=== PATIENT | female | born 1955 | race Caucasian/White ===

== ENCOUNTER 2018-11-06 15:51 | Emergency (ER) | payer OTHER ==
[~2018-11-06] VITALS: Ht 160 cm; Wt 87.7 kg
[2018-11-06] MEDS ORDERED: normal saline 1000ml 1,000 ML IV ONE (16:35)
[2018-11-06] MEDS ORDERED: insulin regular, human 10 units/0.1 ml syringe SQ ONE (16:35)
[2018-11-06 16:50] LABS: CLARITY,URINE CLEAR (Clear); COLOR,URINE STRAW (Yellow); GLUCOSE, URINE >=1000 mg/dl (Neg); KETONES,URINE NEGATIVE (Neg); LEUKOCYTE ESTERASE ,URINE NEGATIVE (Neg); NITRITES, URINE NEGATIVE (Neg); OCCULT BLOOD,URINE NEGATIVE (Neg); PROTEIN,URINE NEGATIVE (Neg); UROBILINOGEN,URINE 0.2 E.U/dL (0.2-1.0)
[2018-11-06 17:01] LABS: UA COLLECTION TYPE NON-SPECIFIED
[2018-11-06 17:07] LABS: SQUAMOUS EPITHELIAL CELL,UR FEW /LPF (FEW)
[2018-11-06 17:08] LABS: MUCUS STRANDS FEW /LPF (Neg); WBC,URINE 0-4 /HPF (0-4)
[2018-11-06 17:11] LABS: YEAST FEW /HPF (NEGATIVE)
[2018-11-06 17:12] LABS: BACTERIA,URINE NONE SEEN /HPF (Neg); RBC,URINE NONE SEEN /HPF (0-2)
--- NOTE | 2018-11-06 17:14 | NUR ---
ROSE PA NOTIFIED PT BG 380, WILL ADMIN NS IV BOLUS AND RECHECK BG TO DETERMINE NEED FOR INSULIN
[2018-11-06 17:39] LABS: ALANINE AMINOTRANSFERASE 33 U/L (12-78); ALBUMIN 3.4 G/DL (3.4-5.0); ALBUMIN/GLOBULIN RATIO 1.2 (1.1-1.5); ALKALINE PHOSPHATASE 139 IU/L (46-116); ANION GAP 10 (8-16); ASPARTATE AMINO TRANSFERASE 15 U/L (10-37); BILIRUBIN,TOTAL 0.2 MG/DL (0.1-1.0); BLOOD UREA NITROGEN 21 MG/DL (7-18); BUN/CREATININE RATIO 19.1 (6.6-38.0); CALCIUM 9.5 MG/DL (8.5-10.1); CHLORIDE 102 MMOL/L (99-107); GLUCOSE 381 MG/DL (70-104); POTASSIUM 3.7 MMOL/L (3.5-5.1); SODIUM 135 MMOL/L (135-145); TOTAL CARBON DIOXIDE 23.1 MMOL/L (24-32); TOTAL PROTEIN 6.2 G/DL (6.4-8.2); eGFR 50 ML/MIN
--- NOTE | 2018-11-06 17:46 | NUR ---
ROSE PA AT BEDSIDE FOR EVALAUTION, PT BG 340, DO NOT GIVE INSULIN
--- NOTE | 2018-11-06 18:06 | NUR ---
GAVE PT PHONE NUMBER FOR DIABETIC EDUCATION AT [facility]
[2018-11-06 18:12] LABS: BASOPHILS # (AUTO) 0.1 X10'3 (0-0.2); BASOPHILS % (AUTO) 0.7 % (0-1); EOSINOPHILS # (AUTO) 0.2 X10'3 (0-0.9); EOSINOPHILS % (AUTO) 2.8 % (0-6); HEMATOCRIT 35.2 % (35.0-45.0); HEMOGLOBIN 12.1 g/dl (12.0-16.0); LYMPHOCYTES # (AUTO) 2.5 X10'3 (1.1-4.8); LYMPHOCYTES % (AUTO) 33.9 % (21-51); MEAN CORPUSCULAR HEMOGLOBIN 30.8 PG (27.0-31.0); MEAN CORPUSCULAR HGB CONC 34.5 g/dL (33.0-36.5); MEAN CORPUSCULAR VOLUME 89.4 FL (78-98); MEAN PLATELET VOLUME 9.1 FL (7.4-10.4); MONOCYTES # (AUTO) 0.5 X10'3 (0-0.9); MONOCYTES % (AUTO) 7.1 % (2-12); NEUTROPHILS # (AUTO) 4.2 X10'3 (1.8-7.7); NEUTROPHILS % (AUTO) 55.5 % (42-75); PLATELET COUNT 251 X10'3 (140-440); RED BLOOD COUNT 3.94 X10'6 (4.20-5.60); RED CELL DISTRIBUTION WIDTH 13.6 % (11.5-14.5); WHITE BLOOD COUNT 7.5 X10'3 (4.5-11.0)
--- NOTE | 2018-11-06 18:48 | NUR ---
accucheck 304, Pt ok to Dc per PA Thornton.
[2018-11-06 18:51] VITALS: BP 125/87
== END 2018-11-06 18:57 | disposition home or self-care (01) ==
LOC: ER 15:52
DX: E11.65 Type 2 diabetes mellitus with hyperglycemia (principal); R19.7 Diarrhea, unspecified; R10.9 Unspecified abdominal pain; R61 Generalized hyperhidrosis; R11.0 Nausea; L60.0 Ingrowing nail; L53.9 Erythematous condition, unspecified; I10 Essential (primary) hypertension; Z88.0 Allergy status to penicillin; Z79.899 Other long term (current) drug therapy
CPT/HCPCS: 36415; 80053; 81001; 82948; 83036; 85025; 96372; 99283; J1815; J7030

== ENCOUNTER → 2020-09-25 | Emergency (ER) | payer MEDICARE, BC ==
[~2020-09-25] VITALS: Ht 160 cm; Wt 84.1 kg
[~2020-09-25] MED LIST: DICY10CA88 PO; LORazepam 2 mg/ml vial IV ONE; ONDA4TAB12 PO; diphenhydrAMINE 50 mg/ml inj IV ONE; glycopyrrolate 0.2mg/ml inj IV ONE; ketorolac trometh. 30mg/ml inj. IV ONE; metoclopramide 5 mg/ml inj IV ONE; morphine 10mg/ml inj. IV ONE; normal saline 1000ml 1,000 ML IV ONE
[2020-09-25 05:48] LABS: CLARITY,URINE CLEAR (Clear); COLOR,URINE YELLOW (Yellow); GLUCOSE, URINE >=1000 mg/dl (Neg); KETONES,URINE 40 mg/dl (Neg); LEUKOCYTE ESTERASE ,URINE NEGATIVE (Neg); NITRITES, URINE NEGATIVE (Neg); OCCULT BLOOD,URINE NEGATIVE (Neg); PROTEIN,URINE NEGATIVE (Neg); UROBILINOGEN,URINE 0.2 E.U/dL (0.2-1.0)
[2020-09-25 05:52] LABS: BASOPHILS # (AUTO) 0.2 X10'3 (0-0.2); BASOPHILS % (AUTO) 1.1 % (0-1); EOSINOPHILS % (AUTO) 0.2 % (0-6); HEMATOCRIT 45.4 % (35.0-45.0); HEMOGLOBIN 15.1 g/dl (12.0-16.0); LYMPHOCYTES # (AUTO) 1.6 X10'3 (1.1-4.8); LYMPHOCYTES % (AUTO) 9.7 % (21-51); MEAN CORPUSCULAR HEMOGLOBIN 30.4 PG (27.0-31.0); MEAN CORPUSCULAR HGB CONC 33.2 g/dL (33.0-36.5); MEAN CORPUSCULAR VOLUME 91.6 FL (78-98); MEAN PLATELET VOLUME 8.8 FL (7.4-10.4); MONOCYTES # (AUTO) 0.8 X10'3 (0-0.9); MONOCYTES % (AUTO) 4.6 % (2-12); NEUTROPHILS # (AUTO) 14.2 X10'3 (1.8-7.7); NEUTROPHILS % (AUTO) 84.4 % (42-75); PLATELET COUNT 258 X10'3 (140-440); RED BLOOD COUNT 4.96 X10'6 (4.20-5.60); RED CELL DISTRIBUTION WIDTH 13.7 % (11.5-14.5); WHITE BLOOD COUNT 16.9 X10'3 (4.5-11.0)
[2020-09-25 05:56] LABS: UA COLLECTION TYPE CLN CATCH MIDSTREAM
[2020-09-25 06:02] LABS: BACTERIA,URINE NONE SEEN /HPF (Neg); RBC,URINE NONE SEEN /HPF (0-2); WBC,URINE NONE SEEN /HPF (0-4)
[2020-09-25 06:03] LABS: SQUAMOUS EPITHELIAL CELL,UR FEW /LPF (FEW)
[2020-09-25 06:05] LABS: YEAST FEW /HPF (NEGATIVE)
[2020-09-25 06:06] LABS: ALANINE AMINOTRANSFERASE 38 U/L (12-78); ALBUMIN 3.8 G/DL (3.4-5.0); ALBUMIN/GLOBULIN RATIO 1.1 (1.1-1.5); ALKALINE PHOSPHATASE 103 IU/L (46-116); ANION GAP 15 (8-16); ASPARTATE AMINO TRANSFERASE 31 U/L (10-37); BILIRUBIN,TOTAL 0.5 MG/DL (0.1-1.0); BLOOD UREA NITROGEN 18 MG/DL (7-18); BUN/CREATININE RATIO 22.2 (6.6-38.0); CALCIUM 9.9 MG/DL (8.5-10.1); CHLORIDE 99 MMOL/L (99-107); CREATININE 0.81 MG/DL (0.40-0.90); GLUCOSE 229 MG/DL (70-104); LIPASE 142 U/L (73-393); POTASSIUM 4.3 MMOL/L (3.5-5.1); SODIUM 134 MMOL/L (135-145); TOTAL CARBON DIOXIDE 19.6 MMOL/L (24-32); TOTAL PROTEIN 7.3 G/DL (6.4-8.2); eGFR 71 ML/MIN
--- NOTE | 2020-09-25 06:36 | NUR ---
Patient recveived on bed,due meds given,call light lawrence barba.
--- NOTE | 2020-09-25 07:18 | NUR ---
patient asleep at this time.We will monitor.
--- NOTE | 2020-09-25 07:59 | NUR ---
stage technician at bedside.
--- NOTE | 2020-09-25 08:45 | NUR ---
patient asleep at this time.We will monitor.
[2020-09-25 09:32] VITALS: BP 135/97
== END | disposition home or self-care (01) ==
LOC: ER 04:47
DX: R10.30 Lower abdominal pain, unspecified (principal); R11.10 Vomiting, unspecified; Z72.0 Tobacco use; D35.02 Benign neoplasm of left adrenal gland; E11.9 Type 2 diabetes mellitus without complications; I10 Essential (primary) hypertension
CPT/HCPCS: 36415; 74176; 76700; 80053; 81001; 83690; 84145; 85025; 96361; 96374; 96375; 99285; J1200; J1885; J2060; J2270; J2765; J7030; J3490

== ENCOUNTER 2021-02-28 16:40 | Emergency (ER) | payer MEDICARE, BC ==
[~2021-02-28] VITALS: Ht 160 cm; Wt 87.4 kg
[~2021-02-28 16:40] MED LIST changes: -DICY10CA88 PO; -LORazepam 2 mg/ml vial IV ONE; -diphenhydrAMINE 50 mg/ml inj IV ONE; -glycopyrrolate 0.2mg/ml inj IV ONE; -ketorolac trometh. 30mg/ml inj. IV ONE; -metoclopramide 5 mg/ml inj IV ONE; -morphine 10mg/ml inj. IV ONE; -normal saline 1000ml 1,000 ML IV ONE
[2021-02-28 17:56] VITALS: BP 161/100
[2021-02-28 18:36] LABS: LYMPHOCYTES # (AUTO) 2.9 X10'3 (1.1-4.8); NEUTROPHILS # (AUTO) 8.8 X10'3 (1.8-7.7); NEUTROPHILS % (AUTO) 67.8 % (42-75)
[2021-02-28 18:38] LABS: BASOPHILS # (AUTO) 0.1 X10'3 (0-0.2); BASOPHILS % (AUTO) 0.6 % (0-1); EOSINOPHILS # (AUTO) 0.4 X10'3 (0-0.9); EOSINOPHILS % (AUTO) 3.1 % (0-6); HEMATOCRIT 45.3 % (35.0-45.0); HEMOGLOBIN 14.9 g/dl (12.0-16.0); MEAN CORPUSCULAR HEMOGLOBIN 29.8 PG (27.0-31.0); MEAN CORPUSCULAR VOLUME 90.2 FL (78-98); MONOCYTES # (AUTO) 0.8 X10'3 (0-0.9); MONOCYTES % (AUTO) 6.5 % (2-12); PLATELET COUNT 253 X10'3 (140-440); RED BLOOD COUNT 5.02 X10'6 (4.20-5.60)
[2021-02-28 18:54] LABS: ALANINE AMINOTRANSFERASE 42 U/L (12-78); ALKALINE PHOSPHATASE 149 IU/L (46-116); ANION GAP 15 (8-16); ASPARTATE AMINO TRANSFERASE 25 U/L (10-37); BILIRUBIN,TOTAL 0.2 MG/DL (0.1-1.0); BLOOD UREA NITROGEN 21 MG/DL (7-18); BUN/CREATININE RATIO 23.1 (6.6-38.0); CALCIUM 10.1 MG/DL (8.5-10.1); CHLORIDE 107 MMOL/L (99-107); CREATININE 0.91 MG/DL (0.40-0.90); GLUCOSE 136 MG/DL (70-104); MAGNESIUM 2.5 MG/DL (1.5-2.4); SODIUM 142 MMOL/L (135-145); TOTAL CARBON DIOXIDE 20.2 MMOL/L (24-32); TOTAL PROTEIN 7.9 G/DL (6.4-8.2); eGFR 62 ML/MIN
[2021-02-28 19:02] LABS: POTASSIUM 4.5 MMOL/L (3.5-5.1)
[2021-02-28] MEDS ORDERED: DOXYCYCLINE 100MG CAPSULE PO STA (21:13)
[2021-02-28] MEDS ORDERED: HYDROcodone/acetaminophen 5mg/325mg tablet PO ONE (21:15)
[2021-02-28] MEDS ORDERED: DOXY100C76 PO (21:54)
== END 2021-02-28 22:25 | disposition home or self-care (01) ==
LOC: ER 16:40
DX: S91.301A Unspecified open wound, right foot, initial encounter (principal); I10 Essential (primary) hypertension; E11.9 Type 2 diabetes mellitus without complications; Z88.0 Allergy status to penicillin; Z88.2 Allergy status to sulfonamides; Z79.1 Long term (current) use of non-steroidal anti-inflammatories (NSAID); Z90.710 Acquired absence of both cervix and uterus; Z79.899 Other long term (current) drug therapy; X58.XXXA Exposure to other specified factors, initial encounter; Y93.89 Activity, other specified; Y92.89 Other specified places as the place of occurrence of the external cause; Y99.8 Other external cause status
CPT/HCPCS: 36415; 73630; 80053; 82948; 83735; 84145; 85025; 85651; 99284

== ENCOUNTER 2023-05-13 11:24 | Emergency (ER) | payer MEDICARE, BC ==
[~2023-05-13] VITALS: Ht 160 cm; Wt 78.4 kg
[~2023-05-13 11:24] MED LIST changes: +ASPI-1071 PO; +ATOR20TA66 PO; +CLOP75TA34 PO; +DULO60CA65 PO; +GABA300C PO; +LOP25T PO; +METF-900 PO; +NICO-631 TD; +OLME40TA18 PO; -ONDA4TAB12 PO
[2023-05-13 11:56] LABS: BASOPHILS # (AUTO) 0.1 X10'3 (0-0.2); BASOPHILS % (AUTO) 1.4 % (0-1); EOSINOPHILS # (AUTO) 0.2 X10'3 (0-0.9); EOSINOPHILS % (AUTO) 2.1 % (0-6); LYMPHOCYTES % (AUTO) 20.8 % (21-51); MEAN CORPUSCULAR HEMOGLOBIN 29.5 PG (27.0-31.0); MEAN CORPUSCULAR HGB CONC 32.6 g/dL (33.0-36.5); MEAN CORPUSCULAR VOLUME 90.3 FL (78-98); MEAN PLATELET VOLUME 8.2 FL (7.4-10.4); MONOCYTES # (AUTO) 0.5 X10'3 (0-0.9); MONOCYTES % (AUTO) 5.7 % (2-12); NEUTROPHILS # (AUTO) 6.7 X10'3 (1.8-7.7); PLATELET COUNT 298 X10'3 (140-440); RED BLOOD COUNT 4.75 X10'6 (4.20-5.60); RED CELL DISTRIBUTION WIDTH 13.9 % (11.5-14.5); WHITE BLOOD COUNT 9.6 X10'3 (4.5-11.0)
[2023-05-13 12:14] LABS: ALANINE AMINOTRANSFERASE 34 U/L (12-78); ALBUMIN 3.3 G/DL (3.4-5.0); ALKALINE PHOSPHATASE 139 IU/L (46-116); ANION GAP 14 (8-16); ASPARTATE AMINO TRANSFERASE 15 U/L (10-37); BILIRUBIN,TOTAL 0.2 MG/DL (0.1-1.0); BLOOD UREA NITROGEN 21 MG/DL (7-18); BUN/CREATININE RATIO 21.4 (10.0-20.0); CALCIUM 9.7 MG/DL (8.5-10.1); CHLORIDE 98 MMOL/L (99-107); CREATININE 0.98 MG/DL (0.40-0.90); PRO BRAIN NATRIURETIC PEPTIDE 269 PG/ML (0-125); SODIUM 133 MMOL/L (135-145); TOTAL CARBON DIOXIDE 20.7 MMOL/L (24-32); TOTAL PROTEIN 6.5 G/DL (6.4-8.2); eCRCL 45 ML/MIN; eGFR 56 ML/MIN
[2023-05-13 12:18] LABS: GLUCOSE 460 MG/DL (70-104)
[2023-05-13 12:39] VITALS: TEMP 98.7
--- NOTE | 2023-05-13 15:07 | NUR ---
pt is 68 yo female c/o dyspnea x1 day, no coughx 2days, no fever/chills. Smokes 5 cigarettes a day. h/o recent NH, no chest pain/discomfort, pt is talking full sentences, no resp distress. Waiting for provider. Pt also c/o "bump" on left axillary x1 week, +swelling, +redness, was draining per pt, "and I get these all the time", pt was also prescribed another DM med but cannot afford medication. Educated pt on diabetic diet and exercise to control sugars. Pt has been following up with PMD
[2023-05-13] MEDS ORDERED: CEPH-585 PO (15:35)
[2023-05-13] MEDS ORDERED: CLIN300C71 PO (15:35)
[2023-05-13 15:46] VITALS: BP 150/98; PULSE 70; RESP 18; O2SAT 97
[2023-05-13] MEDS ORDERED: ALBU18HF2 INH (16:17)
[2023-05-17] MEDS ORDERED: ALBU6.7H14 INH (12:38)
[2023-05-17] MEDS ORDERED: OXYC1TAB17 PO (12:38)
[2023-05-17] MEDS ORDERED: ALPR0.252 PO (12:52)
[2023-05-17] MEDS ORDERED: NITR0.4T51 SL (13:01)
[2023-05-17] MEDS ORDERED: HYDR-3973 PO (13:05)
[2023-05-17] MEDS ORDERED: METO25TA6 PO (13:05)
[2023-05-18] MEDS ORDERED: ATOR-2 PO (11:11)
[2023-05-18] MEDS ORDERED: NEED-136 SUBCUT (11:11)
[2023-05-18] MEDS ORDERED: INSU300I3 SQ (11:11)
[2023-05-18] MEDS ORDERED: TICA90TA PO (11:11)
== END 2023-05-13 15:49 | disposition home or self-care (01) ==
LOC: ER 11:25
DX: Z88.0 Allergy status to penicillin (principal); Z88.2 Allergy status to sulfonamides; Z79.82 Long term (current) use of aspirin; Z79.899 Other long term (current) drug therapy
CPT/HCPCS: 36415; 71045; 80053; 82948; 83880; 84484; 85025; 93005; 99285

== ENCOUNTER 2023-07-03 11:04 | Emergency (ER) | payer MEDICARE, BC ==
[~2023-07-03] VITALS: Ht 161.3 cm; Wt 74.3 kg
[~2023-07-03 11:04] MED LIST changes: +ALBU18HF2 INH; +ALBU6.7H14 INH; +ALPR0.252 PO; +ATOR-2 PO; -ATOR20TA66 PO; -CLOP75TA34 PO; +HYDR-3973 PO; +INSU300I3 SQ; -LOP25T PO; +METO25TA6 PO; +NEED-136 SUBCUT; +NITR0.4T51 SL; +TICA90TA PO
[2023-07-03 11:43] LABS: BASOPHILS # (AUTO) 0.1 X10'3 (0-0.2); BASOPHILS % (AUTO) 1.2 % (0-1); EOSINOPHILS # (AUTO) 0.2 X10'3 (0-0.9); EOSINOPHILS % (AUTO) 1.6 % (0-6); HEMATOCRIT 43.9 % (35.0-45.0); HEMOGLOBIN 14.2 g/dl (12.0-16.0); LYMPHOCYTES # (AUTO) 2.6 X10'3 (1.1-4.8); LYMPHOCYTES % (AUTO) 22.9 % (21-51); MEAN CORPUSCULAR HEMOGLOBIN 29.2 PG (27.0-31.0); MEAN CORPUSCULAR HGB CONC 32.3 g/dL (33.0-36.5); MEAN CORPUSCULAR VOLUME 90.5 FL (78-98); MEAN PLATELET VOLUME 8.8 FL (7.4-10.4); MONOCYTES # (AUTO) 0.8 X10'3 (0-0.9); MONOCYTES % (AUTO) 6.6 % (2-12); NEUTROPHILS # (AUTO) 7.7 X10'3 (1.8-7.7); NEUTROPHILS % (AUTO) 67.7 % (42-75); PLATELET COUNT 374 X10'3 (140-440); RED BLOOD COUNT 4.85 X10'6 (4.20-5.60); RED CELL DISTRIBUTION WIDTH 14.3 % (11.5-14.5); WHITE BLOOD COUNT 11.4 X10'3 (4.5-11.0)
[2023-07-03 12:44] LABS: ALANINE AMINOTRANSFERASE 29 U/L (12-78); ALBUMIN 3.5 G/DL (3.4-5.0); ALBUMIN/GLOBULIN RATIO 0.9 (1.1-1.5); ALKALINE PHOSPHATASE 127 IU/L (46-116); ANION GAP 14 (8-16); ASPARTATE AMINO TRANSFERASE 16 U/L (10-37); BILIRUBIN,TOTAL 0.4 MG/DL (0.1-1.0); BLOOD UREA NITROGEN 18 MG/DL (7-18); BUN/CREATININE RATIO 20.2 (10.0-20.0); CALCIUM 10.4 MG/DL (8.5-10.1); CHLORIDE 103 MMOL/L (99-107); CREATININE 0.89 MG/DL (0.40-0.90); GLUCOSE 353 MG/DL (70-104); POTASSIUM 4.2 MMOL/L (3.5-5.1); SODIUM 136 MMOL/L (135-145); TOTAL CARBON DIOXIDE 19.1 MMOL/L (24-32); TOTAL PROTEIN 7.2 G/DL (6.4-8.2); eCRCL 51 ML/MIN; eGFR 63 ML/MIN
[2023-07-03 12:51] LABS: PRO BRAIN NATRIURETIC PEPTIDE 148 PG/ML (0-125)
[2023-07-03] MEDS ORDERED: normal saline 1000ML IV soln IVB ONE (19:30)
[2023-07-03] MEDS ORDERED: albuterol 2.5 MG/3 ML nebule NEB ONE (19:30)
[2023-07-03] MEDS ORDERED: pantoprazole 40mg IV 80 MG in normal saline 100ml IV soln 100 ML IV ONE (19:30)
[2023-07-03] MEDS ORDERED: pantoprazole 40 MG vial IV ONE (19:45)
[2023-07-03 19:50] VITALS: PULSE 84; RESP 12; O2SAT 99
[2023-07-03 19:57] VITALS: PULSE 88; RESP 16
[2023-07-03] MEDS ORDERED: ondansetron/PF 4mg/2ml inj IV ONE (20:15)
[2023-07-03 20:55] LABS: BILIRUBIN,URINE NEGATIVE (Neg); CLARITY,URINE CLEAR (Clear); COLOR,URINE YELLOW (Yellow); GLUCOSE, URINE >=1000 mg/dl (Neg); KETONES,URINE NEGATIVE (Neg); LEUKOCYTE ESTERASE ,URINE NEGATIVE (Neg); NITRITES, URINE NEGATIVE (Neg); OCCULT BLOOD,URINE NEGATIVE (Neg); PH,URINE 5.5 (4.8-8.0); PROTEIN,URINE NEGATIVE (Neg); UROBILINOGEN,URINE 0.2 E.U/dL (0.2-1.0)
[2023-07-03 20:57] LABS: UA COLLECTION TYPE VOIDED
[2023-07-03 21:00] LABS: URINE AMPHETAMINE SCREEN NEGATIVE (Neg); URINE BARBITUATE SCREEN NEGATIVE (Neg); URINE BENZODIAZEPINES SCREEN NEGATIVE (Neg); URINE CANNABINOID SCREEN NEGATIVE (Neg); URINE COCAINE SCREEN NEGATIVE (Neg); URINE METHADONE SCREEN NEGATIVE (Neg); URINE OPIATE SCREEN POSITIVE (Neg); URINE PHENCYCLIDINE SCREEN NEGATIVE (Neg)
[2023-07-03 21:02] LABS: HYALINE CASTS 0-3 /LPF (NEGATIVE); MUCUS STRANDS FEW /LPF (Neg); SQUAMOUS EPITHELIAL CELL,UR MANY /LPF (FEW)
[2023-07-03 21:04] LABS: BACTERIA,URINE NONE SEEN /HPF (Neg); RBC,URINE 0-2 /HPF (0-2); WBC,URINE 0-4 /HPF (0-4)
[2023-07-03 22:15] VITALS: BP 133/85; PULSE 89; RESP 16; TEMP 98.3; O2SAT 99
== END 2023-07-03 22:29 | disposition home or self-care (01) ==
LOC: ER 11:05
DX: E11.65 Type 2 diabetes mellitus with hyperglycemia (principal); R07.89 Other chest pain; R06.02 Shortness of breath; R10.13 Epigastric pain; I25.10 Atherosclerotic heart disease of native coronary artery without angina pectoris; E78.00 Pure hypercholesterolemia, unspecified; I10 Essential (primary) hypertension; Z90.710 Acquired absence of both cervix and uterus; Z88.0 Allergy status to penicillin; Z88.2 Allergy status to sulfonamides; Z79.82 Long term (current) use of aspirin; Z79.899 Other long term (current) drug therapy; Z95.5 Presence of coronary angioplasty implant and graft
CPT/HCPCS: 36415; 71045; 80053; 80305; 81001; 83880; 84484; 85025; 93005; 94640; 96361; 96374; 96375; 99285; C9113; J2405; J7030; 94760

== ENCOUNTER 2024-02-29 15:08 | Emergency (ER) | payer MEDICARE, BC ==
[~2024-02-29] VITALS: Ht 160 cm; Wt 80.0 kg
[2024-02-29 16:09] LABS: BASOPHILS # (AUTO) 0.1 X10'3 (0-0.2); BASOPHILS % (AUTO) 1.1 % (0-1); EOSINOPHILS # (AUTO) 0.5 X10'3 (0-0.9); EOSINOPHILS % (AUTO) 4.9 % (0-6); HEMOGLOBIN 13.6 g/dl (12.0-16.0); LYMPHOCYTES # (AUTO) 2.5 X10'3 (1.1-4.8); LYMPHOCYTES % (AUTO) 22.9 % (21-51); MEAN CORPUSCULAR HEMOGLOBIN 29.6 PG (27.0-31.0); MEAN CORPUSCULAR HGB CONC 33.1 g/dL (33.0-36.5); MEAN CORPUSCULAR VOLUME 89.3 FL (78-98); MEAN PLATELET VOLUME 7.9 FL (7.4-10.4); MONOCYTES # (AUTO) 0.7 X10'3 (0-0.9); MONOCYTES % (AUTO) 6.1 % (2-12); NEUTROPHILS # (AUTO) 7.2 X10'3 (1.8-7.7); PLATELET COUNT 352 X10'3 (140-440); RED BLOOD COUNT 4.59 X10'6 (4.20-5.60); RED CELL DISTRIBUTION WIDTH 16.2 % (11.5-14.5)
[2024-02-29 16:21] LABS: ALANINE AMINOTRANSFERASE 23 U/L (12-78); ALBUMIN 3.7 G/DL (3.4-5.0); ALBUMIN/GLOBULIN RATIO 0.9 (1.1-1.5); ALKALINE PHOSPHATASE 119 IU/L (46-116); ANION GAP 14 (8-16); ASPARTATE AMINO TRANSFERASE 15 U/L (10-37); BILIRUBIN,TOTAL 0.2 MG/DL (0.1-1.0); BLOOD UREA NITROGEN 27 MG/DL (7-18); BUN/CREATININE RATIO 33.3 (10.0-20.0); CALCIUM 10.3 MG/DL (8.5-10.1); CHLORIDE 108 MMOL/L (99-107); CREATININE 0.81 MG/DL (0.40-0.90); GLUCOSE 185 MG/DL (70-104); SODIUM 142 MMOL/L (135-145); TOTAL CARBON DIOXIDE 19.9 MMOL/L (24-32); TOTAL PROTEIN 7.6 G/DL (6.4-8.2); eCRCL 55 ML/MIN; eGFR 70 ML/MIN
[2024-02-29 16:31] LABS: FREE T4 (FREE THYROXINE) 0.79 NG/DL (0.73-1.40); MAGNESIUM 1.8 MG/DL (1.5-2.4); PRO BRAIN NATRIURETIC PEPTIDE 253 PG/ML (0-125)
[2024-02-29 17:37] LABS: BILIRUBIN,URINE NEGATIVE (Neg); CLARITY,URINE CLEAR (Clear); COLOR,URINE STRAW (Yellow); GLUCOSE, URINE 100 mg/dl (Neg); KETONES,URINE NEGATIVE (Neg); LEUKOCYTE ESTERASE ,URINE NEGATIVE (Neg); NITRITES, URINE NEGATIVE (Neg); OCCULT BLOOD,URINE NEGATIVE (Neg); PROTEIN,URINE NEGATIVE (Neg); UROBILINOGEN,URINE 0.2 E.U/dL (0.2-1.0)
[2024-02-29] MEDS: normal saline 1000ML IV soln IVB ONE (17:41)
[2024-02-29 17:42] LABS: UA COLLECTION TYPE CLN CATCH MIDSTREAM
[2024-02-29 17:47] VITALS: BP 186/79; PULSE 58; RESP 16; O2SAT 100
[2024-02-29] MEDS ORDERED: DOXY100C43 PO (18:16)
[2024-02-29 18:28] VITALS: TEMP 97.1
== END 2024-02-29 18:30 | disposition home or self-care (01) ==
LOC: ER 15:09
DX: R07.89 Other chest pain (principal); J40 Bronchitis, not specified as acute or chronic; E86.0 Dehydration; I25.10 Atherosclerotic heart disease of native coronary artery without angina pectoris; E78.00 Pure hypercholesterolemia, unspecified; I10 Essential (primary) hypertension; I25.2 Old myocardial infarction; E11.9 Type 2 diabetes mellitus without complications; Z88.0 Allergy status to penicillin; Z88.2 Allergy status to sulfonamides; Z79.899 Other long term (current) drug therapy; Z79.4 Long term (current) use of insulin; Z79.82 Long term (current) use of aspirin; Z79.84 Long term (current) use of oral hypoglycemic drugs; Z90.710 Acquired absence of both cervix and uterus; Z98.61 Coronary angioplasty status; Z98.890 Other specified postprocedural states
CPT/HCPCS: 36415; 71045; 80053; 81003; 83605; 83735; 83880; 84439; 84443; 84484; 85025; 93005; 96360; 99285; J7030

== ENCOUNTER 2024-10-06 15:26 | Emergency (ER) | payer MEDICARE, BC ==
[~2024-10-06] VITALS: Ht 167.6 cm; Wt 82.5 kg
[2024-10-06 15:51] LABS: BASOPHILS # (AUTO) 0.1 X10'3 (0-0.2); EOSINOPHILS # (AUTO) 0.3 X10'3 (0-0.9); EOSINOPHILS % (AUTO) 2.1 % (0-6); HEMATOCRIT 39.7 % (35.0-45.0); HEMOGLOBIN 13.1 g/dl (12.0-16.0); LYMPHOCYTES # (AUTO) 2.6 X10'3 (1.1-4.8); LYMPHOCYTES % (AUTO) 21.4 % (21-51); MEAN CORPUSCULAR HEMOGLOBIN 28.8 PG (27.0-31.0); MEAN CORPUSCULAR HGB CONC 32.9 g/dL (33.0-36.5); MEAN CORPUSCULAR VOLUME 87.5 FL (78-98); MEAN PLATELET VOLUME 7.9 FL (7.4-10.4); MONOCYTES # (AUTO) 0.7 X10'3 (0-0.9); NEUTROPHILS # (AUTO) 8.5 X10'3 (1.8-7.7); NEUTROPHILS % (AUTO) 69.5 % (42-75); PLATELET COUNT 322 X10'3 (140-440); RED BLOOD COUNT 4.53 X10'6 (4.20-5.60); RED CELL DISTRIBUTION WIDTH 14.6 % (11.5-14.5); WHITE BLOOD COUNT 12.3 X10'3 (4.5-11.0)
[2024-10-06 16:03] VITALS: TEMP 97.8
[2024-10-06 16:14] LABS: ALANINE AMINOTRANSFERASE 25 U/L (12-78); ALBUMIN 3.4 G/DL (3.4-5.0); ALKALINE PHOSPHATASE 150 IU/L (46-116); ANION GAP 11 (8-16); ASPARTATE AMINO TRANSFERASE 14 U/L (10-37); BILIRUBIN,TOTAL 0.2 MG/DL (0.1-1.0); BLOOD UREA NITROGEN 28 MG/DL (7-18); BUN/CREATININE RATIO 25.2 (10.0-20.0); CALCIUM 9.5 MG/DL (8.5-10.1); CHLORIDE 109 MMOL/L (99-107); CREATININE 1.11 MG/DL (0.40-0.90); GLUCOSE 166 MG/DL (70-104); POTASSIUM 4.3 MMOL/L (3.5-5.1); SODIUM 142 MMOL/L (135-145); TOTAL CARBON DIOXIDE 22.3 MMOL/L (24-32); TOTAL PROTEIN 6.9 G/DL (6.4-8.2); eCRCL 45 ML/MIN; eGFR 49 ML/MIN
[2024-10-06 16:22] LABS: PRO BRAIN NATRIURETIC PEPTIDE 172 PG/ML (0-125)
[2024-10-06] MEDS ORDERED: ALPRAZolam 0.25mg tablet PO ONE (18:20)
[2024-10-06] MEDS: ALPRAZolam 0.5mg tablet PO ONE (18:40)
[2024-10-06 18:42] VITALS: BP 148/72; PULSE 64; RESP 18; O2SAT 98
== END 2024-10-06 18:45 | disposition home or self-care (01) ==
LOC: ER 15:27
DX: R07.9 Chest pain, unspecified (principal); R06.02 Shortness of breath; E11.9 Type 2 diabetes mellitus without complications; E78.00 Pure hypercholesterolemia, unspecified; I11.9 Hypertensive heart disease without heart failure; I25.10 Atherosclerotic heart disease of native coronary artery without angina pectoris; Z95.5 Presence of coronary angioplasty implant and graft; Z88.0 Allergy status to penicillin; Z88.2 Allergy status to sulfonamides; Z90.710 Acquired absence of both cervix and uterus; Z79.82 Long term (current) use of aspirin
CPT/HCPCS: 36415; 71045; 80053; 83880; 84484; 85025; 93005; 99285

== ENCOUNTER 2024-10-13 14:04 | Inpatient (IN) | payer MEDICARE, BC ==
[~2024-10-13] VITALS: Ht 161.3 cm; Wt 82.5 kg
[2024-10-13 14:49] LABS: BASOPHILS # (AUTO) 0.1 X10'3 (0-0.2); EOSINOPHILS # (AUTO) 0.4 X10'3 (0-0.9); EOSINOPHILS % (AUTO) 3.1 % (0-6); HEMATOCRIT 37.9 % (35.0-45.0); HEMOGLOBIN 12.6 g/dl (12.0-16.0); LYMPHOCYTES # (AUTO) 2.2 X10'3 (1.1-4.8); LYMPHOCYTES % (AUTO) 19.2 % (21-51); MEAN CORPUSCULAR HGB CONC 33.2 g/dL (33.0-36.5); MEAN CORPUSCULAR VOLUME 87.4 FL (78-98); MEAN PLATELET VOLUME 7.8 FL (7.4-10.4); MONOCYTES # (AUTO) 0.5 X10'3 (0-0.9); MONOCYTES % (AUTO) 4.6 % (2-12); NEUTROPHILS # (AUTO) 8.2 X10'3 (1.8-7.7); NEUTROPHILS % (AUTO) 72.1 % (42-75); PLATELET COUNT 337 X10'3 (140-440); RED BLOOD COUNT 4.33 X10'6 (4.20-5.60); RED CELL DISTRIBUTION WIDTH 14.3 % (11.5-14.5); WHITE BLOOD COUNT 11.4 X10'3 (4.5-11.0)
[2024-10-13 15:13] LABS: ALANINE AMINOTRANSFERASE 27 U/L (12-78); ALBUMIN 3.4 G/DL (3.4-5.0); ALBUMIN/GLOBULIN RATIO 1.1 (1.1-1.5); ALKALINE PHOSPHATASE 144 IU/L (46-116); ANION GAP 8 (8-16); ASPARTATE AMINO TRANSFERASE 17 U/L (10-37); BILIRUBIN,TOTAL 0.2 MG/DL (0.1-1.0); BLOOD UREA NITROGEN 24 MG/DL (7-18); CALCIUM 9.5 MG/DL (8.5-10.1); CHLORIDE 111 MMOL/L (99-107); GLUCOSE 148 MG/DL (70-104); POTASSIUM 4.4 MMOL/L (3.5-5.1); SODIUM 141 MMOL/L (135-145); TOTAL CARBON DIOXIDE 21.8 MMOL/L (24-32); TOTAL PROTEIN 6.6 G/DL (6.4-8.2); eCRCL 45 ML/MIN; eGFR 55 ML/MIN
[2024-10-13 15:31] LABS: PRO BRAIN NATRIURETIC PEPTIDE 153 PG/ML (0-125)
[2024-10-13] MEDS ORDERED: furosemide 40mg/4ml inj IV ONE (16:10)
[2024-10-13] MEDS ORDERED: iohexol 350MG/ML 100ml bottle IV ONE (16:37)
[2024-10-13] MEDS: aspirin 81mg tab.chew PO ONE (19:09)
[2024-10-13] MEDS: nitroGLYCERIN 0.4mg SUBLingual tab SL ONE (19:11)
[2024-10-13] MEDS ORDERED: magnesium hydroxide 30ml (MOM) UD suspension PO PRN (19:20)
[2024-10-13] MEDS ORDERED: morphine 2 MG/ML inj. syringe IV PRN ×2 (19:20)
[2024-10-13] MEDS ORDERED: nitroGLYCERIN 0.4mg SUBLingual tab SL PRN (19:20)
[2024-10-13] MEDS ORDERED: regadenoson 0.4mg/5ml syringe IV PRN (19:20)
[2024-10-13] MEDS ORDERED: potassium Cl 40MEQ/1/2NS 520ml 520 ML IV PRN (19:20)
[2024-10-13] MEDS ORDERED: potassium Cl 20 mEq SR tablet PO PRN (19:20)
[2024-10-13] MEDS ORDERED: magnesium Cl slow-release 64mg tablet PO PRN (19:20)
[2024-10-13] MEDS ORDERED: mag hydrox/Alum hydrox/simeth 30ml oral suspension PO PRN (19:20)
[2024-10-13] MEDS ORDERED: metoprolol tartrate 1mg/ml inj IV PRN (19:20)
[2024-10-13] MEDS ORDERED: acetaminophen 325mg tablet PO PRN (19:20)
[2024-10-13] MEDS ORDERED: magnesium sulf-water 2g/50mL 50 ML IV PRN (19:20)
[2024-10-13] MEDS ORDERED: magnesium sulf-water 4G/100mL 100 ML IV PRN (19:20)
[2024-10-13] MEDS ORDERED: aminophylline 250mg/10ml inj. IV PRN (19:20)
[2024-10-13] MEDS ORDERED: aminophylline 500mg/20ml vial IV PRN (19:40)
[2024-10-13] MEDS: PERFLUTREN PROTEIN-A MICROSPHR (Optison) 0.22 MG/ML 3ML VIAL IV ONE (19:43)
[2024-10-13] MEDS: K and/or MAG REPLACEMENT MC SCH (20:00)
[2024-10-13] MEDS: docusate sod 100mg capsule PO SCH (20:00)
[2024-10-13] MEDS ORDERED: dextrose 50%-water 50ml dispensing syringe IV PRN ×2 (21:15)
[2024-10-13] MEDS ORDERED: DEXTROSE 15 GM of carb/4 tabs (each vial/BOTTLE has 4 tablets) PO PRN ×2 (21:15)
[2024-10-13] MEDS ORDERED: glucagon, human recombinant 1mg kit SUBCUT PRN (21:15)
[2024-10-13] MEDS: enoxaparin 40mg/0.4ml syringe SQ SCH (21:47)
[2024-10-13] MEDS: furosemide 10 MG/1 ML 10ml inj IV ONE (21:48)
[2024-10-13] MEDS: ALPRAZolam 0.5mg tablet PO ONE (21:48)
[2024-10-13 23:00] VITALS: BP 121/67; PULSE 65; RESP 17; TEMP 97; O2SAT 100
[2024-10-14] VITALS (10 sets, daily range): BP systolic 112–162; BP diastolic 65–84; PULSE 51–89; RESP 16–18; TEMP 97.3–98.2; O2SAT 97–100
[2024-10-14 06:02] LABS: BASOPHILS # (AUTO) 0.1 X10'3 (0-0.2); EOSINOPHILS # (AUTO) 0.4 X10'3 (0-0.9); EOSINOPHILS % (AUTO) 4.3 % (0-6); HEMATOCRIT 39.8 % (35.0-45.0); HEMOGLOBIN 12.9 g/dl (12.0-16.0); LYMPHOCYTES # (AUTO) 2.6 X10'3 (1.1-4.8); LYMPHOCYTES % (AUTO) 27.5 % (21-51); MEAN CORPUSCULAR HEMOGLOBIN 28.3 PG (27.0-31.0); MEAN CORPUSCULAR HGB CONC 32.3 g/dL (33.0-36.5); MEAN CORPUSCULAR VOLUME 87.4 FL (78-98); MEAN PLATELET VOLUME 8.1 FL (7.4-10.4); MONOCYTES # (AUTO) 0.7 X10'3 (0-0.9); MONOCYTES % (AUTO) 7.4 % (2-12); NEUTROPHILS # (AUTO) 5.6 X10'3 (1.8-7.7); NEUTROPHILS % (AUTO) 59.8 % (42-75); PLATELET COUNT 335 X10'3 (140-440); RED BLOOD COUNT 4.56 X10'6 (4.20-5.60); RED CELL DISTRIBUTION WIDTH 14.6 % (11.5-14.5); WHITE BLOOD COUNT 9.3 X10'3 (4.5-11.0)
[2024-10-14 06:27] LABS: HEMOGLOBIN A1C 9.1 % (4.5-6.2)
[2024-10-14 06:35] LABS: ALANINE AMINOTRANSFERASE 26 U/L (12-78); ALBUMIN 3.3 G/DL (3.4-5.0); ALKALINE PHOSPHATASE 140 IU/L (46-116); ANION GAP 9 (8-16); ASPARTATE AMINO TRANSFERASE 17 U/L (10-37); BILIRUBIN,TOTAL 0.2 MG/DL (0.1-1.0); BLOOD UREA NITROGEN 21 MG/DL (7-18); BUN/CREATININE RATIO 29.6 (10.0-20.0); CALCIUM 9.6 MG/DL (8.5-10.1); CHLORIDE 107 MMOL/L (99-107); CHOL/HDL RATIO 3.9 (0.00-4.99); CHOLESTEROL 185 MG/DL (0-200); CREATININE 0.71 MG/DL (0.40-0.90); GLUCOSE 113 MG/DL (70-104); HDL CHOLESTEROL 48 MG/DL (35-60); LDL CHOLESTEROL 109 MG/DL (50-100); MAGNESIUM 1.9 MG/DL (1.5-2.4); POTASSIUM 3.4 MMOL/L (3.5-5.1); SODIUM 141 MMOL/L (135-145); TOTAL CARBON DIOXIDE 24.7 MMOL/L (24-32); TOTAL PROTEIN 6.5 G/DL (6.4-8.2); TRIGLYCERIDES 173 MG/DL (20-135); eCRCL 63 ML/MIN; eGFR 82 ML/MIN
[2024-10-14] MEDS ORDERED: HYDR-3968 PO (06:42)
[2024-10-14] MEDS ORDERED: HYDR-3717 PO (06:42)
[2024-10-14] MEDS: INSULIN LISPRO 100 UNIT/ML INSULN.PEN MULTI-DOSE SQ SCH ×2 (07:00→09:00)
[2024-10-14] MEDS ORDERED: HYDROcodone/acetaminophen 5mg/325mg tablet PO PRN (08:05)
[2024-10-14] MEDS: HYDROcodone/acetaminophen 10/325mg tab PO PRN (08:19)
[2024-10-14] MEDS: potassium Cl 20 mEq SR tablet PO PRN (08:19)
[2024-10-14] MEDS: ondansetron/PF 4mg/2ml inj IV PRN (08:54)
[2024-10-14] MEDS: furosemide 20 MG/2 ML vial IV SCH (10:02)
[2024-10-14] MEDS: amLODIPine 5mg tablet PO ONE (14:30)
[2024-10-14] MEDS ORDERED: atorvastatin 20mg tablet PO SCH (21:00)
[2024-10-14] MEDS ORDERED: insulin glargine (Lantus) pen - multi-dose SQ SCH (21:00)
[2024-10-15] MEDS ORDERED: amLODIPine 5mg tablet PO SCH (08:00)
== END 2024-10-14 14:10 | disposition left against medical advice (07) | DRG 311 ==
LOC: ER 14:05 → ED HOLD 19:30 → EDBEDREQ 21:58 → PCU 3S 22:17
PROVIDERS: ADMIT Internal Medicine Critical Care Medicine; ATTEND Nurse Practitioner Family
PROC: B32T1ZZ Computerized Tomography (CT Scan) of Left Pulmonary Artery using Low Osmolar Contrast (ICD-10-PCS; 2024-10-13)
PROC: B3201ZZ Computerized Tomography (CT Scan) of Thoracic Aorta using Low Osmolar Contrast (ICD-10-PCS; 2024-10-13)
PROC: B32S1ZZ Computerized Tomography (CT Scan) of Right Pulmonary Artery using Low Osmolar Contrast (ICD-10-PCS; 2024-10-13)
PROC: 4A02XM4 Measurement of Cardiac Total Activity, External Approach (ICD-10-PCS; principal; 2024-10-14)
PROC: 3E033HZ Introduction of Radioactive Substance into Peripheral Vein, Percutaneous Approach (ICD-10-PCS; 2024-10-14)
DX: I24.9 Acute ischemic heart disease, unspecified (principal); I50.32 Chronic diastolic (congestive) heart failure; E11.9 Type 2 diabetes mellitus without complications; I25.10 Atherosclerotic heart disease of native coronary artery without angina pectoris; G89.29 Other chronic pain; M54.50 Low back pain, unspecified; E78.00 Pure hypercholesterolemia, unspecified; I11.0 Hypertensive heart disease with heart failure; J44.89 Other specified chronic obstructive pulmonary disease; Z53.29 Procedure and treatment not carried out because of patient's decision for other reasons; Z90.710 Acquired absence of both cervix and uterus; Z87.891 Personal history of nicotine dependence; Z88.0 Allergy status to penicillin; I25.2 Old myocardial infarction; Z88.2 Allergy status to sulfonamides; Z80.9 Family history of malignant neoplasm, unspecified; Z79.899 Other long term (current) drug therapy; Z98.891 History of uterine scar from previous surgery
CPT/HCPCS: 36415; 71045; 71275; 78452; 80053; 80061; 82948; 83036; 83735; 83880; 84484; 85025; 87081; 93005; 93017; 93306; 96374; 99285; A9500; G0378; J1938; J2405; Q9967

== ENCOUNTER 2024-10-17 14:27 | Inpatient (IN) | payer MEDICARE, BC ==
[~2024-10-17] VITALS: Ht 161.3 cm; Wt 79.7 kg
[~2024-10-17 14:27] MED LIST changes: -ALBU6.7H14 INH; -ALPR0.252 PO; -ASPI-1071 PO; -ATOR-2 PO; +HYDR-3717 PO; +HYDR-3968 PO; -HYDR-3973 PO; -NICO-631 TD
--- NOTE | 2024-10-17 14:34 | ELECTROCARDIOGRAPH REPORT ---
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 Matthieu White Measurements Intervals [place] Rate: 87 P: 40 [place]: 161 QRS: -10 QRSD: 103 T: 17 QT: 358 QTc: 431 Interpretive Statements Sinus rhythm Inferior infarct, old Consider anterior infarct Electronically Signed On 10-22-2024 9:31:[address] Matthieu White Please click the below link to view image of tracing.
--- NOTE | 2024-10-17 14:57 | RADIOLOGY REPORT ---
EXAM: DI CHEST,SINGLE VIEW HISTORY: CP COMPARISON: DI CHEST,SINGLE VIEW on DOS: 10/13/24, DI CHEST,SINGLE VIEW on DOS: 10/06/24, DI CHEST,SINGL E VIEW on DOS: 02/29/24, DI CHEST,SINGLE VIEW on DOS: 07/03/23, DI CHEST,SINGLE VIEW on DOS: 05/17/23, C T scan of the chest dated 10/13/2024. TECHNIQUE: PA upright view of the chest was performed. FINDINGS: No pneumothorax, consolidative infiltrates, or pulmonary edema. The heart is borderline enlarged. The re is prominence of the pericardial fat pads, greater on the right. IMPRESSION: No acute intrathoracic process.
[2024-10-17 15:07] LABS: BASOPHILS % (AUTO) 0.2 % (0-1); EOSINOPHILS # (AUTO) 0.2 X10'3 (0-0.9); EOSINOPHILS % (AUTO) 2.1 % (0-6); HEMATOCRIT 39.2 % (35.0-45.0); HEMOGLOBIN 12.8 g/dl (12.0-16.0); LYMPHOCYTES # (AUTO) 2.2 X10'3 (1.1-4.8); LYMPHOCYTES % (AUTO) 19.1 % (21-51); MEAN CORPUSCULAR HEMOGLOBIN 28.1 PG (27.0-31.0); MEAN CORPUSCULAR HGB CONC 32.7 g/dL (33.0-36.5); MEAN CORPUSCULAR VOLUME 86.1 FL (78-98); MEAN PLATELET VOLUME 8.2 FL (7.4-10.4); MONOCYTES # (AUTO) 0.6 X10'3 (0-0.9); MONOCYTES % (AUTO) 5.4 % (2-12); NEUTROPHILS # (AUTO) 8.4 X10'3 (1.8-7.7); NEUTROPHILS % (AUTO) 73.2 % (42-75); PLATELET COUNT 386 X10'3 (140-440); RED BLOOD COUNT 4.55 X10'6 (4.20-5.60); RED CELL DISTRIBUTION WIDTH 14.6 % (11.5-14.5); WHITE BLOOD COUNT 11.5 X10'3 (4.5-11.0)
[2024-10-17 15:13] LABS: ALANINE AMINOTRANSFERASE 24 U/L (12-78); ALBUMIN 3.6 G/DL (3.4-5.0); ALKALINE PHOSPHATASE 153 IU/L (46-116); ANION GAP 11 (8-16); ASPARTATE AMINO TRANSFERASE 11 U/L (10-37); BILIRUBIN,TOTAL 0.2 MG/DL (0.1-1.0); BLOOD UREA NITROGEN 25 MG/DL (7-18); BUN/CREATININE RATIO 24.8 (10.0-20.0); CALCIUM 9.8 MG/DL (8.5-10.1); CHLORIDE 107 MMOL/L (99-107); CREATININE 1.01 MG/DL (0.40-0.90); GLUCOSE 235 MG/DL (70-104); POTASSIUM 4.4 MMOL/L (3.5-5.1); SODIUM 139 MMOL/L (135-145); TOTAL CARBON DIOXIDE 20.8 MMOL/L (24-32); TOTAL PROTEIN 7.1 G/DL (6.4-8.2); eCRCL 44 ML/MIN; eGFR 54 ML/MIN
[2024-10-17 15:21] LABS: PRO BRAIN NATRIURETIC PEPTIDE 125 PG/ML (0-125)
--- NOTE | 2024-10-17 15:45 | Physician Documentation ---
History of Present Illness ~ Chief Complaint: Shortness of Breath Stated Complaint: SOB Time Seen by MD: 15:45 Primary Medical Doctor: yazan PATRICK 69-year-old female, who presents with exertional shortness of breath and chest pain. She tells me that she was recently here in the hospital, but had to leave. She continues to have symptoms though and so she returned. She reports exertional shortness of breath. She denies a fever cough. She also had an episode of chest pain earlier today, similar previous episodes. She denies any leg pain or swelling. No other new or different concerns. Medication Reconciliation Allergies: Coded Allergies: Penicillins (Verified Allergy, Unknown, 07/03/23) Sulfa (Sulfonamide Antibiotics) (Verified Allergy, Unknown, 07/03/23) Uncoded Allergies: PENICILLIN (Allergy, Unknown, ITCHING/RASH, 03/09/23) SULFA (Allergy, Unknown, 02/28/21) Scheduled Duloxetine HCl (Duloxetine HCl), 1 CAP PO DAILY, (Reported) Gabapentin (Neurontin), 1 CAP PO HS, (Reported) Insulin Glargine,Hum.rec.anlog ([place] Max Solostar), 12 UNITS SQ HS Metformin Hcl* (Metformin ER*), 1 TAB PO TID, (Reported) Metoprolol Tartrate (Metoprolol Tartrate), 1 TAB PO BID, (Reported) Olmesartan Medoxomil (Olmesartan Medoxomil), 1 TAB PO DAILY, (Reported) Ticagrelor (Brilinta), 90 MG PO BID Scheduled PRN Albuterol Sulfate (Ventolin Hfa), 2 PUFFS INH Q4H PRN for SOB or wheezing Hydrocodone Bit/Acetaminophen (Hydrocodon-Acetaminoph 7.5-325), 1 TAB PO QID PRN for pain, (Reported) Hydroxyzine Hcl* (Atarax*), 1 TAB PO DAILY PRN for anxiety, (Reported) Nitroglycerin SL* (Nitrostat SL*), 1 TAB SL Q5MIN PRN for Chest pain Q5min PRNx 3-call MD, (Reported) Discontinued Medications Albuterol Sulfate (Proventil Hfa), 2 PUFFS INH Q4H PRN for SOB or wheezing, (Reported) Discontinued Reason: patient no longer taking Alprazolam (Xanax), 1 TAB PO DAILY, (Reported) Discontinued Reason: patient no longer taking Aspirin (Ecotrin*), 1 TAB PO DAILY Discontinued Reason: patient no longer taking Atorvastatin Calcium (Atorvastatin Calcium), 1 TAB PO DAILY Discontinued Reason: patient no longer taking Hydrocodone Bit/Acetaminophen (Hydrocodone-Apap 10-325 Tablet), 1 TAB PO QID PRN PRN for pain, (Reported) Discontinued Reason: patient no longer taking Nicotine 14 MG Patch* (Habitrol 14 MG Patch*), 1 PATCH TD DAILY Discontinued Reason: patient no longer taking Durable Medical Equipment [place], Insulin Disposable (Bd Ultra-Fine Pen Needle), SYR SUBCUT DAILY, (DME) Past Medical History Past Medical History: Coronary Artery Disease, High Cholesterol, Hypertension, Myocardial Infarction, Diabetes Past Surgical History: angioplasty, , hysterectomy Patient History: FH: cancer FATHER Alcohol Use: None Drug Use: none Lives with: Alone Lives In: Home Occupation: employed Review of Systems Respiratory: Reports: SOB with exertion Cardiovascular: Reports: chest pain Physical Exam Vital Signs: Temperature: 98.5, Source: Oral, Heart Rate: 80, Respiratory Rate: 18, BP: 161/86, Pulse Oximetry: 99, Weight: 79.700 Oxygen Flow Rate: 0 Physical Exam General: This is a pleasant older female sitting calmly in the chair HEENT: Atraumatic, oropharynx is moist Heart: Regular rate, normal-appearing peripheral perfusion Lungs: Normal phonation, normal work of breathing, normal oxygen saturation on room air Extremities: No Pitting edema to the lower extremities Neuro: Alert and oriented, seems to have a poor memory of recent events, but otherwise no focal deficits Psychiatric: Calm and cooperative with exam Progress Results/Orders Results/Orders Orders - CASPER MCWILLIAMS MD Chest,Single View (10/17/24 14:38) Monitor (10/17/24 14:38) Saline Lock (10/17/24 14:38) Oxygen (10/17/24 14:38) Hs Troponin I W Calculations (10/17/24 16:38) Hs Troponin I W Calculations (10/17/24 17:38) Page Hospitalist (10/17/24 16:03) Completed Orders - CASPER MCWILLIAMS MD Electrocardiogram (10/17/24 14:29) Chest,Single View (10/17/24 14:38) Cbc/Diff (10/17/24 14:38) PBNP (10/17/24 14:38) CMP (10/17/24 14:38) Hs Troponin I W Calculations (10/17/24 14:38) Vital Signs 10/17/24 10/17/24 14:35 15:26 Temp 98.5 Pulse 80 Resp 16 18 B/P (MAP) 161/86 Pulse Ox 99 O2 Flow Rate 0 Laboratory Tests Test 10/17/24 14:50 White Blood Count 11.5 H Red Blood Count 4.55 Hemoglobin 12.8 Hematocrit 39.2 Mean Corpuscular Volume 86.1 Mean Corpuscular Hemoglobin 28.1 Mean Corpuscular Hemoglobin Concent 32.7 L Red Cell Distribution Width 14.6 H Platelet Count 386 Mean Platelet Volume 8.2 Neutrophils (%) (Auto) 73.2 Lymphocytes (%) (Auto) 19.1 L Monocytes (%) (Auto) 5.4 Eosinophils (%) (Auto) 2.1 Basophils (%) (Auto) 0.2 Neutrophils # (Auto) 8.4 H Lymphocytes # (Auto) 2.2 Monocytes # (Auto) 0.6 Eosinophils # (Auto) 0.2 Basophils # (Auto) 0.0 CBC Comment Sodium Level 139 Potassium Level 4.4 Chloride Level 107 Carbon Dioxide Level 20.8 L Anion Gap 11 Blood Urea Nitrogen 25 H Creatinine 1.01 H Estimated GFR/1.73 m2 54 BUN/Creatinine Ratio 24.8 H Glucose Level 235 H Calcium Level 9.8 Total Bilirubin 0.2 Aspartate Amino Transf (AST/SGOT) 11 Alanine Aminotransferase (ALT/SGPT) 24 Alkaline Phosphatase 153 H Troponin I High Sensitivity 9 Pro-B-Type Natriuretic Peptide 125 Total Protein 7.1 Albumin 3.6 Globulin 3.5 Albumin/Globulin Ratio 1.0 L Chemistry Comments EKG/XRAY/CT/US/VASC/MRI EKG : Additional Comment I personally interpreted the EKG and this shows: Sinus rhythm, rate 87, no STEMI, QTC 431 Chest X-Ray : Additional Comments I personally reviewed the x-ray, and it shows: No focal consolidation, no significant pulmonary edema, normal mediastinum Consults/PCP Consults/PCP : Additional Comment Consult: I spoke to the internal medicine service, for admission in the hospital Medical Decision Making Additional info obtained from: old records Findings Per chart review, the patient was seen here in the emergency department, admitted for chest pain, but left AMA prior to cardiac evaluation. Per that discharge summary: "HEART score 6, proceeded with Lexiscan. Lexiscan positive for stress-induced inferior ischemia. Discussed case with unhairing machine operator Dr. Gaffney who agreed to see the patient. Patient is not medically cleared for discharge. However, patient left AMA despite explaining risks associated with leaving AMA." Additional Infomation The patient presents with exertional shortness of breath and chest pain. Per chart review she was just admitted here and had an abnormal stress test. Her symptoms seem similar to previous. Her workup today shows no acute changes including no sign of STEMI, and a negative troponin. She will be admitted to the medicine service for further evaluation and cardiology evaluation and treatment. Departure Impression: Primary Impression: Exertional shortness of breath Additional Impression: Abnormal stress test Referrals: NO PRIMARY CARE PROVIDER (PCP) Signature Scribe Signature: na Attestation: CASPER Dodge MD Oct 17, 2024 15:45
[2024-10-17] MEDS ORDERED: INSU300I12 (16:34)
[2024-10-17] MEDS ORDERED: magnesium sulf-water 2g/50mL 50 ML IV PRN (17:05)
[2024-10-17] MEDS ORDERED: ondansetron/PF 4mg/2ml inj IV PRN (17:05)
[2024-10-17] MEDS ORDERED: magnesium Cl slow-release 64mg tablet PO PRN (17:05)
[2024-10-17] MEDS ORDERED: potassium Cl 40MEQ/1/2NS 520ml 520 ML IV PRN (17:05)
[2024-10-17] MEDS ORDERED: magnesium sulf-water 4G/100mL 100 ML IV PRN (17:05)
[2024-10-17] MEDS ORDERED: magnesium hydroxide 30ml (MOM) UD suspension PO PRN (17:05)
[2024-10-17] MEDS ORDERED: potassium Cl 20 mEq SR tablet PO PRN ×2 (17:05)
[2024-10-17] MEDS ORDERED: ipratropium/albuterol 3ml nebule NEB PRN (17:05)
[2024-10-17] MEDS ORDERED: acetaminophen 325mg tablet PO PRN (17:05)
[2024-10-17] MEDS ORDERED: albuterol 2.5 MG/3 ML nebule NEB PRN (17:30)
[2024-10-17] MEDS ORDERED: nitroGLYCERIN 0.4mg SUBLingual tab SL PRN (17:30)
[2024-10-17] MEDS ORDERED: glucagon, human recombinant 1mg kit SUBCUT PRN (17:50)
[2024-10-17] MEDS ORDERED: DEXTROSE 15 GM of carb/4 tabs (each vial/BOTTLE has 4 tablets) PO PRN ×2 (17:50)
[2024-10-17] MEDS ORDERED: dextrose 50%-water 50ml dispensing syringe IV PRN ×2 (17:50)
--- NOTE | 2024-10-17 17:57 | HISTORY AND PHYSICAL-Residence ---
History & Physical Providers to CC Resident Creating Document: IBRAHIMA HENRIQUEZ, RES ~ History of Present Illness Primary Medical Doctor: yazan Reason for Admit\\Complaint: Shortness of breaths History of Present Illness 69 years old female with history of diabetes, current smoker, chronic back pain presented to the ED due to difficulty breathing. Patient reported it started today in the morning while she was watching TV, exacerbating with exertion, denied chest pain diaphoresis, palpitation. She denied fever chills, cough or any other associated symptom. Patient admitted in our hospital three days ago with similar symptoms and left AMA. Allergies: Coded Allergies: Penicillins (Verified Allergy, Unknown, 07/03/23) Sulfa (Sulfonamide Antibiotics) (Verified Allergy, Unknown, 07/03/23) Uncoded Allergies: PENICILLIN (Allergy, Unknown, ITCHING/RASH, 03/09/23) SULFA (Allergy, Unknown, 02/28/21) Home Medications Home Medications Active Bd Ultra-Fine Pen Needle ([place], Insulin Disposable) 31 Gauge X 5/16" Dis.needle Syr SUBCUT DAILY Ventolin Hfa (Albuterol Sulfate) 90 Mcg Hfa.aer.ad 2 Puffs INH Q4H PRN Reported Insulin Glargine Solostar (Insulin Glargine,Hum.rec.anlog) 300 Unit/Ml (1.5 Ml) Insuln.pen 19 Unit HS Atarax* (Hydroxyzine HCl) 10 Mg Tablet 1 Tab PO DAILY PRN Hydrocodon-Acetaminoph 7.5-325 (Hydrocodone Bit/Acetaminophen) 7.5 Mg-325 Mg Tablet 1 Tab PO QID PRN Metoprolol Tartrate 25 Mg Tablet 1 Tab PO BID Nitrostat SL* (Nitroglycerin) 0.4 Mg Tablet 1 Tab SL Q5MIN PRN Metformin ER* (Metformin HCl) 500 Mg Tab.sr.24h 1 Tab PO TID Olmesartan Medoxomil 40 Mg Tablet 1 Tab PO DAILY Neurontin (Gabapentin) 300 Mg Capsule 1 Cap PO HS 30 Days Past Medical History Past Medical History Diabetes mellitus type 2 Myocardial infarction 2022 Dyslipidemia Asthma Hypertension Past Surgical History Surgical History Comment Family History Family History: FH: cancer (Lung) FATHER Past Social History Smoking: Cigarettes (Smoking cigarettes more than 20 years, recently she is smoking 2-3 cigarettes daily) Alcohol Use: None Drug Use: None Lives with: Alone Lives In: Home ROS ROS The history of present illness included a review of system, which yielded relevant positives and negatives Exam Vitals: Vital Signs Date Time Temp Pulse Resp B/P (MAP) Pulse Ox O2 Delivery O2 Flow Rate FiO2 10/17/24 15:26 18 10/17/24 14:35 98.5 80 99 0 General: General: Awake and Alert, no acute distress. HEENT: Conjunctiva pink, Sclera clear, Mucus Membranes moist. Neck: Supple without masses and tenderness. Resp: Lungs clear to auscultation bilaterally. Heart: Regular Rate and rhythm, normal S1 and S2 without murmur Abdomen: Soft and non tender no organomegaly Axillary: Right axilla, multiple firm tender subcutaneous nodules and sinus tracts with overlying hyperpigmented scarring there is no drainage, mid tenderness Extremities: No cyanosis,clubbing or edema. Skin: Warm and Dry. Neurological: Speech is clear, alert, and oriented x 4, no gross neurological deficits Diagnostic Data Last Recorded Lab Results: 10/17/24 1450 10/17/24 1450 Advance Care Planning Advanced Care plannin - 30 Minutes Additional Plan 69 years old female with history of diabetes, dyslipidemia, asthma, current smoker, myocardial infarction presented to the ED due to shortness of breath Subjective Shortness of breaths History of myocardial infarction Hypertension, current smoker Admitted with similar symptoms three days back on 10/14/2024 and left AMA EKG showed sinus rhythm, normal axis, rate 87, no ST changes Echocardiography on 10/14/2024: OverallLVEF is 55%. Normal LV size and lower limit normal function. Borderline moderate concentric hypertrophy. The right ventricle is normal size. The right ventricular systolic function is normal. Trileaflet AV appears mildly sclerotic without stenosis. No insufficiency. Mild MV and annular calcification without stenosis. Trace mild regurgitation. The tricuspid valve is normal in structure. Trace tricuspid regurgitation. Normal pericardium. No effusion. Trending Troponin is negative Lexiscan was done on last admission three days ago: Moderately diminished perfusion involving portions of the inferior wall on stress compared to rest, suggesting stress-induced ischemia. Dr. Gaffney was consulted, he said he knows patient and patient did not follow-up with him unfortunately. No emergency at this time medical management Continue metoprolol 25 b.i.d., losartan 100 daily Nitroglycerin sublingual for chest pain p.r.n. atorvastatin [address] scan ordered is pending Type 2 diabetes mellitus On home insulin 19 units Lantus HS On hyperglycemia hypoglycemia protocol Hidradenitis suppurativa stage I Topical clindamycin Patient advised to follow healthy diet to lose weight Patient advised to quit smoking which is attributed to worsening symptoms Current smoker Patient was consulted regarding the adverse effect of his smoking including cardiovascular disease cancer respiratory disease and other patient potential harms Chronic back pain Patient reported had a spondylolysis Physical therapy as an outpatient Code Status: Full DVT prophylaxis: Heparin Analgesia/sedation: none Line/tube: Peripheral GI prophylaxis: none Nutrition: Heart healthy diet, carb controlled Prognosis: Fair Disposition: Continue monitoring patient in ortho floor with telemetry Ibrahima Henriquez MD Internal Medicine Resident PATIENT IS SEEN AND EXAMINED DISCUSSED WITH RESIDENT AT THE BEDSIDE Date of Service: Oct 17, 2024 Billing Provider: SAARY TAYLOR MD Common Visit Codes: [id number] INP/OBS CARE (HIGH) IBRAHIMA HENRIQUEZ, RES Oct 17, 2024 17:56 SARAY TAYLOR MD Oct 18, 2024 11:30
[2024-10-17] MEDS: K and/or MAG REPLACEMENT MC SCH (18:28)
[2024-10-17] MEDS: insulin glargine (Lantus) pen - multi-dose SQ SCH (19:12)
[2024-10-17] MEDS: heparin, porcine 5000 units/ml vial SQ SCH (19:16)
[2024-10-17] MEDS: metoprolol tartrate 25mg tablet PO SCH (19:17)
[2024-10-17] MEDS: docusate sod 100mg capsule PO SCH (19:17)
[2024-10-17] MEDS: gabapentin 300mg capsule PO SCH (19:18)
[2024-10-17] MEDS: atorvastatin 20mg tablet PO SCH (19:18)
[2024-10-17] MEDS: neomy sulf/bacitrac zn/polymixin b oint 28.4 gm tube TP SCH (19:21)
[2024-10-17] MEDS ORDERED: clindamycin 1% topical susp 60ml bottle TP SCH (20:00)
[2024-10-17] MEDS: INSULIN LISPRO 100 UNIT/ML INSULN.PEN MULTI-DOSE SQ SCH (20:39)
[2024-10-17 20:46] LABS: URINE AMPHETAMINE SCREEN NEGATIVE (Neg); URINE BARBITUATE SCREEN NEGATIVE (Neg); URINE BENZODIAZEPINES SCREEN NEGATIVE (Neg); URINE CANNABINOID SCREEN NEGATIVE (Neg); URINE COCAINE SCREEN NEGATIVE (Neg); URINE METHADONE SCREEN NEGATIVE (Neg); URINE OPIATE SCREEN POSITIVE (Neg); URINE PHENCYCLIDINE SCREEN NEGATIVE (Neg)
--- NOTE | 2024-10-17 20:46 | CONSULTATION REPORT ---
Cardiac Consultation Report Providers to CC ~ Subjective Subjective Cardiology consultation: Shortness of breath. Patient known to me from the past. 1. Remote history of Takotsubo's cardiomyopathy 2. [address]-elevation aborted with intravenous heparin Aggrastat 99% stenosis left anterior descending stent placed 2.25 mm x 8 mm. Six weeks prior to this event she had a 60% lad stenosis. 3. 40% right coronary ejection fraction 66% on 05/17/2023. 4. Insulin- dependent diabetes mellitus hypertension poorly controlled chronically. 5. Anxiety stress reaction chronic past Xanax use. Not see a counselor or psychiatrist. Patient denies it. 6. 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 5. Neurontin mean dependence depressive disorder. During most recent hospitalization on 10/13/2024 she was placed on Brilinta. Since she was placed on Brilinta her shortness of breath is even worse. Brilinta is known to cause this. She is back in the hospital for shortness of breath. Oxygen saturation is 100% on room air. Feels out of breath when she tries to take a breath in. There is no angina pectoris. Hospitalization for 2024 Alex had minimal inferior reversible ischemia no anginal symptoms. She was recommended for medical therapy. Before I could talk to her she signed out AMA. Allergies penicillin sulfa medications insulin Brilinta atorvastatin Ventolin inhaler Habitrol patch. Metoprolol 25 b.i.d. nitroglycerin sublingually p.r.n. Xanax daily Proventil inhaler q.4 hours p.r.n. metformin olmesartan Neurontin duloxetine. Objective Vitals Vital Signs Date Time Temp Pulse Resp B/P (MAP) Pulse Ox O2 Delivery O2 Flow Rate FiO2 10/17/24 19:17 80 10/17/24 18:26 98.2 16 176/95 (122) 98 0 Lab Results: 10/17/24 1450 10/17/24 1450 Objective Carotid no bruit chest clear to auscultation percussion heart no murmur no S3 gallop no rub abdomen active bowel sounds no bruits pulses plus two upper and lower extremities trace edema. Very anxious almost agitated. Feels out of breath all the time sitting still. Oxygen saturation 100%. Troponins are normal. Problem\Assessment\Plan Additional Plan Impression: Chronic multifactorial shortness of breath exacerbated by Brilinta treatment. Recommendation 1. discontinue Brilinta. 2. Control blood pressure would try to reduce her metoprolol dose and use Cardizem instead. That way her lungs will not be reflected and she will get angina relief and blood pressure control. 3. She can be agitated and argumentative. And will not believe her diagnoses. 4. She should develop significant troponin rise above two or typical angina she could undergo repeat coronary angiography. CASPER HUYNH MD Oct 17, 2024 20:46
[2024-10-17 21:00] VITALS: PULSE 62; RESP 16; O2SAT 98
[2024-10-17 21:25] VITALS: BP 138/86; PULSE 76; RESP 18; TEMP 98; O2SAT 97
[2024-10-18 05:34] LABS: BASOPHILS # (AUTO) 0.1 X10'3 (0-0.2); BASOPHILS % (AUTO) 1.2 % (0-1); EOSINOPHILS # (AUTO) 0.4 X10'3 (0-0.9); EOSINOPHILS % (AUTO) 4.7 % (0-6); HEMATOCRIT 36.1 % (35.0-45.0); HEMOGLOBIN 11.9 g/dl (12.0-16.0); LYMPHOCYTES # (AUTO) 2.9 X10'3 (1.1-4.8); LYMPHOCYTES % (AUTO) 33.3 % (21-51); MEAN CORPUSCULAR HEMOGLOBIN 28.8 PG (27.0-31.0); MEAN CORPUSCULAR HGB CONC 33.1 g/dL (33.0-36.5); MEAN CORPUSCULAR VOLUME 87.1 FL (78-98); MEAN PLATELET VOLUME 8.3 FL (7.4-10.4); MONOCYTES # (AUTO) 0.7 X10'3 (0-0.9); MONOCYTES % (AUTO) 7.5 % (2-12); NEUTROPHILS # (AUTO) 4.7 X10'3 (1.8-7.7); NEUTROPHILS % (AUTO) 53.3 % (42-75); PLATELET COUNT 330 X10'3 (140-440); RED BLOOD COUNT 4.14 X10'6 (4.20-5.60); RED CELL DISTRIBUTION WIDTH 14.5 % (11.5-14.5); WHITE BLOOD COUNT 8.8 X10'3 (4.5-11.0)
[2024-10-18 05:43] LABS: ALANINE AMINOTRANSFERASE 23 U/L (12-78); ALBUMIN 2.9 G/DL (3.4-5.0); ALKALINE PHOSPHATASE 121 IU/L (46-116); ANION GAP 8 (8-16); ASPARTATE AMINO TRANSFERASE 14 U/L (10-37); BILIRUBIN,TOTAL 0.3 MG/DL (0.1-1.0); BLOOD UREA NITROGEN 20 MG/DL (7-18); BUN/CREATININE RATIO 26.7 (10.0-20.0); CALCIUM 9.3 MG/DL (8.5-10.1); CHLORIDE 109 MMOL/L (99-107); CREATININE 0.75 MG/DL (0.40-0.90); GLUCOSE 150 MG/DL (70-104); MAGNESIUM 1.8 MG/DL (1.5-2.4); POTASSIUM 4.1 MMOL/L (3.5-5.1); SODIUM 141 MMOL/L (135-145); TOTAL CARBON DIOXIDE 23.8 MMOL/L (24-32); TOTAL PROTEIN 5.9 G/DL (6.4-8.2); eCRCL 60 ML/MIN; eGFR 77 ML/MIN
[2024-10-18 06:00] VITALS: BP 144/68; PULSE 50; RESP 16; TEMP 97.6; O2SAT 97
[2024-10-18 08:00] VITALS: RESP 16
[2024-10-18] MEDS: losartan 50mg tablet PO SCH (08:57)
[2024-10-18 10:00] VITALS: BP 171/77; PULSE 75; RESP 18; TEMP 97.3; O2SAT 97
--- NOTE | 2024-10-18 11:34 | DISCHARGE SUMMARY ---
Discharge Summary Providers to CC ~ Discharge Summary Admission Diagnosis: SOB, CAD Hospital Course DATE OF ADMISSION: 10/17/2024 DATE OF DISCHARGE: 10/18/2024 Discharge Diagnosis\Comment: CHEST PAIN SHORTNESS OF BREATH OBESITY DIABETES HYPERTENSION HYPERLIPIDEMIA ASTHMA Operations\Procedures: NONE Consultants: DR. HUYNH CONSULTED OVER THE TELEPHONE WHO KNOWS THE PATIENT FROM A PREVIOUS ADMISSION Complications: NONE Condition on DC: Stable Discharge Summary: PATIENT IS A 69-YEAR-OLD THAT WAS RECENTLY ADMITTED WITH CHEST PAIN AND LEFT AMA COMES BACK AGAIN WITH INCREASING SHORTNESS OF BREATH History of Present Illness 69 years old female with history of diabetes, current smoker, chronic back pain presented to the ED due to difficulty breathing. Patient reported it started today in the morning while she was watching TV, exacerbating with exertion, denied chest pain diaphoresis, palpitation. She denied fever chills, cough or any other associated symptom. Patient admitted in our hospital three days ago with similar symptoms and left AMA. PATIENT IS ALERT AND ORIENTED X3 NO ACUTE DISTRESS LYING DOWN COMFORTABLY SPEAKING IN FULL SENTENCES HEENT NORMOCEPHALIC NONTRAUMATIC HEAD CVS FIRST AND SECOND HEART SOUNDS ARE REGULAR RATE RHYTHM NO MURMURS GALLOPS OR RUBS RESPIRATORY SYSTEM IS CLEAR TO AUSCULTATE BILATERALLY NO RALES RHONCHI CRACKLES OR WHEEZING ABDOMEN IS SOFT OBESE BOWEL SOUNDS ARE POSITIVE NONTENDER NONDISTENDED EXTREMITIES NO CLUBBING CYANOSIS OR EDEMA NEUROLOGICAL EXAM NO FOCAL DEFICITS HOSPITAL COURSE PATIENT IS A 69-YEAR-OLD THAT WAS ADMITTED SECONDARY TO [facility]. PATIENT HAS A LONGSTANDING HISTORY OF DIABETES HYPERTENSION HYPERLIPIDEMIA ASTHMA COPD PROBABLY. SHE SAYS SHE DOES NOT KNOW IF SHE HAS ANY HISTORY OF COPD THOUGH SHE HAS GOT MORE THAN A 20 YEAR HISTORY OF SMOKING MORE THAN A PACK A DAY PROBABLY DOES HAVE UNDERLYING COPD BUT DOES ADMIT TO HAVING ASTHMA. SHE RECENTLY HAD A POSITIVE STRESS TEST AFTER WHICH INSTEAD OF BEING SEEN BY THE NEWS [employer] PERSON DR. HUYNH SHE LEFT AMA BECAUSE SHE HAS ANIMALS AT HOME THAT SHE NEEDED TO TAKE CARE OF. THIS TIME SHE RETURNS WITH SHORTNESS OF BREATH. HEAD TROPONINS ARE ONLY MILDLY ELEVATED. WE DISCUSSED THE CASE IN DETAILS WITH DR. WEBER OVER THE TELEPHONE AND HE STATES THAT THE PATIENT CAN BE SEEN IN HIS OFFICE AND DOES NOT NEED ANY FURTHER WORKUP IN THE HOSPITAL. PATIENT SAYS SHE ALREADY HAS AN APPOINTMENT IN HIS OFFICE ON SUNDAY. IN THE INTERIM I ADDED A LAMA AND LABA TO THE PATIENT'S HOME MEDICATIONS TO INCREASE HER RESPIRATORY STATUS. AND ADVISED HER TO USE THE ALBUTEROL PRN FOR HER SHORTNESS OF BREATH AND HAVE PFTS DONE AN OUTPATIENT TO HELP MAKE A DIAGNOSIS OF COPD. ALSO ADVISED TO QUIT SMOKING. PATIENT SAYS SHE IS TRYING SHE IS CUTTING DOWN AND SHE IS DOWN TO A COUPLE OF CIGARETTES A DAY. *Problems/Diagnosis: (1) History of hypertension Status: Acute (2) SOB (shortness of breath) Status: Acute (3) History of diabetes mellitus Status: Acute (4) Dyspepsia Status: Acute (5) Hyperglycemia Status: Acute (6) Nonspecific chest pain Status: Acute Total Time Spent on D/C: > 30 Minutes Date of Service: Oct 18, 2024 Billing Provider: SARAY TAYLOR MD Common Visit Codes: [id number]/[id number] DISCH DAY >30min SARAY TAYLOR MD Oct 18, 2024 11:34
[2024-10-18] MEDS ORDERED: ATOR20TA66 PO (11:36)
[2024-10-18] MEDS ORDERED: FLUT1BLS4 INH (11:36)
== END 2024-10-18 12:25 | disposition home or self-care (01) | DRG 313 ==
LOC: ER 14:28 → ED HOLD 16:28 → ORTHO 4S 21:14
PROVIDERS: ADMIT Internal Medicine; ATTEND Internal Medicine
DX: R07.89 Other chest pain (principal); E11.65 Type 2 diabetes mellitus with hyperglycemia; E78.00 Pure hypercholesterolemia, unspecified; F17.210 Nicotine dependence, cigarettes, uncomplicated; F41.9 Anxiety disorder, unspecified; J44.9 Chronic obstructive pulmonary disease, unspecified; F32.A Depression, unspecified; G89.29 Other chronic pain; I10 Essential (primary) hypertension; M54.9 Dorsalgia, unspecified; L73.2 Hidradenitis suppurativa; R94.39 Abnormal result of other cardiovascular function study; Z88.0 Allergy status to penicillin; Z88.2 Allergy status to sulfonamides; Z79.4 Long term (current) use of insulin; Z79.899 Other long term (current) drug therapy; Z79.84 Long term (current) use of oral hypoglycemic drugs; Z98.891 History of uterine scar from previous surgery; Z90.710 Acquired absence of both cervix and uterus; I25.119 Atherosclerotic heart disease of native coronary artery with unspecified angina pectoris
CPT/HCPCS: 36415; 71045; 80053; 80305; 82948; 83735; 83880; 84484; 85025; 87081; 93005; 94760; 96372; 99285; G0378; J1644; J1815

== ENCOUNTER 2025-03-27 12:00 | Emergency (ER) | payer MEDICARE, BC ==
[~2025-03-27] VITALS: Ht 160 cm; Wt 75.0 kg
[~2025-03-27 12:00] MED LIST changes: +ATOR20TA66 PO; -DULO60CA65 PO; +FLUT1BLS4 INH; +INSU300I12; -INSU300I3 SQ; -TICA90TA PO
[2025-03-27 12:03] VITALS: BP 120/98; PULSE 83; RESP 16; O2SAT 98
[2025-03-27 12:40] LABS: LEUKOCYTE ESTERASE ,URINE NEGATIVE (Neg); NITRITES, URINE NEGATIVE (Neg); OCCULT BLOOD,URINE NEGATIVE (Neg)
[2025-03-27 12:46] LABS: UA COLLECTION TYPE CLN CATCH MIDSTREAM
--- NOTE | 2025-03-27 13:40 | Physician Documentation ---
History of Present Illness ~ Chief Complaint: Hyperglycemia Stated Complaint: ELEVATED BS Time Seen by MD: 12:18 Primary Medical Doctor: yazan PATRICK This 69-year-old female presents to the ED with a complaint of an elevated blood sugars since yesterday. Had urinary frequency as well. Fevers or nausea vomiting. Says that her blood sugars normally well-controlled Day of Onset: Mar 27, 2025 Medication Reconciliation Allergies: Coded Allergies: Penicillins (Verified Allergy, Unknown, 07/03/23) Sulfa (Sulfonamide Antibiotics) (Verified Allergy, Unknown, 07/03/23) Uncoded Allergies: PENICILLIN (Allergy, Unknown, ITCHING/RASH, 03/09/23) SULFA (Allergy, Unknown, 02/28/21) Scheduled Atorvastatin Calcium (Atorvastatin Calcium), 40 MG PO DAILY Fluticasone/Umeclidin/Vilanter (Trelegy Ellipta 100-62.5-25), 1 PUFFS INH DAILY Gabapentin (Neurontin), 1 CAP PO HS, (Reported) Insulin Glargine,Hum.rec.anlog (Insulin Glargine Solostar), 19 UNIT HS, (Reported) Metformin Hcl* (Metformin ER*), 1 TAB PO TID, (Reported) Metoprolol Tartrate (Metoprolol Tartrate), 1 TAB PO BID, (Reported) Olmesartan Medoxomil (Olmesartan Medoxomil), 1 TAB PO DAILY, (Reported) Scheduled PRN Albuterol Sulfate (Ventolin Hfa), 2 PUFFS INH Q4H PRN for SOB or wheezing Hydrocodone Bit/Acetaminophen (Hydrocodon-Acetaminoph 7.5-325), 1 TAB PO QID PRN for pain, (Reported) Hydroxyzine Hcl* (Atarax*), 1 TAB PO DAILY PRN for anxiety, (Reported) Nitroglycerin SL* (Nitrostat SL*), 1 TAB SL Q5MIN PRN for Chest pain Q5min PRNx3-call MD, (Reported) Durable Medical Equipment [place], Insulin Disposable (Bd Ultra-Fine Pen Needle), SYR SUBCUT DAILY, (DME) Past Medical History Past Medical History: Coronary Artery Disease, High Cholesterol, Hypertension, Myocardial Infarction, Diabetes Past Surgical History: angioplasty, , hysterectomy Patient History: FH: cancer (Lung) FATHER Alcohol Use: None Drug Use: none Lives with: Alone Lives In: Home Review of Systems All Other Systems at this time: Reviewed and Negative ROS As stated above in the HPI, otherwise all systems are reviewed and negative. Physical Exam Vital Signs: Temperature: 97.1, Source: Temporal, Heart Rate: 83, Respiratory Rate: 16, BP: 120/98, Pulse Oximetry: 98, Weight: 75.000 Oxygen Flow Rate: 0 Physical Exam General: Alert, no apparent distress. Respiratory: Lungs clear, no respiratory distress. Cardiovascular: Regular rate and rhythm, no murmurs. Gastrointestinal: Soft, nontender, nondistended. Bowels sounds present. Neurologic: Oriented x4. Psychiatric: Normal mood and affect. Skin: Normal color, warm and dry. No edema, no ecchymosis. Progress Results/Orders Results/Orders Orders - KHAI TYLER PANELBOARD OPERATOR Cbc/Diff (03/27/25 12:18) BMP (03/27/25 12:18) Lipase (03/27/25 12:18) Completed Orders - KHAI TYLER PANELBOARD OPERATOR Urinalysis, Cult If Indicated (03/27/25 12:18) Vital Signs 03/27/25 12:03 Temp 97.1 Pulse 83 Resp 16 B/P (MAP) 120/98 Pulse Ox 98 O2 Flow Rate 0 Laboratory Tests Test 03/27/25 12:06 03/27/25 12:24 Glucometer 184 H Urine Specimen Description Cln catch midstream Urine Color Yellow Urine Clarity Clear Urine pH 5.5 Urine Specific [place] 1.025 Urine Protein Negative Urine Glucose (UA) Negative Urine Ketones Negative Urine Occult Blood Negative Urine Nitrite Negative Urine Bilirubin Negative Urine Urobilinogen 0.2 Urine Leukocyte Esterase Negative Urine Culture Indicated Not ind Volume Urine Centrifuged 10 ml Urine Comment Medical Decision Making Findings Not present with any signs acidosis or hyperglycemia that would indicate the need for insulin at this time. No signs of urinary tract infection was what I initially suspected. Going to discharge this patient for outpatient evaluation Differential Dx:Considerations: Include: Appendicitis, Bowel obstruction, Cholecysitis, Dehydration, Diabetes, Diabetic coma, DKA, Electrolyte abnormality, Encephalopathy, Gastritis, Hepatitis, Hyperglycemia, Hyperosmolar state, Hypoglycemia, Pancreatitis, Pyelonephritis, UTI, Other Departure Disposition: 01 HOME / SELF CARE / HOMELESS Impression: Primary Impression: Hyperglycemia Additional Impression: Diabetes mellitus Condition: Stable Discharge Instructions: Hyperglycemia, [id number] Additional Instructions: You did not show any signs of acute urinary tract infection. Hyperglycemia can be related to oral intake or under management of your diabetes. Follow up with your primary care provider Referrals: NO PRIMARY CARE PROVIDER (PCP) Education Educated: Patient Educated regarding: diagnosis Signature Scribe Signature: g Attestation: Scribed for Khai Tyler Assistant Operations Manager by Khai Velez NP . 03/27/25 13:42 KHAI TYLER NP Mar 27, 2025 13:40
[2025-03-27 13:44] LABS: MEAN PLATELET VOLUME 8.8 FL (7.4-10.4); RED CELL DISTRIBUTION WIDTH 15.8 % (11.5-14.5)
[2025-03-27 13:57] LABS: CREATININE 0.73 MG/DL (0.40-0.90); TOTAL CARBON DIOXIDE 25.2 MMOL/L (24-32); eCRCL 60 ML/MIN; eGFR 79 ML/MIN
[2025-03-27 14:01] VITALS: TEMP 97.1
== END 2025-03-27 14:02 | disposition home or self-care (01) ==
LOC: ER 12:00
DX: E11.65 Type 2 diabetes mellitus with hyperglycemia (principal); E78.00 Pure hypercholesterolemia, unspecified; I10 Essential (primary) hypertension; I25.10 Atherosclerotic heart disease of native coronary artery without angina pectoris; I25.2 Old myocardial infarction; Z88.0 Allergy status to penicillin; Z88.2 Allergy status to sulfonamides; Z90.710 Acquired absence of both cervix and uterus; Z79.4 Long term (current) use of insulin; Z79.899 Other long term (current) drug therapy; Z60.2 Problems related to living alone
CPT/HCPCS: 36415; 80048; 81003; 82948; 83690; 85025; 99283

== ENCOUNTER 2025-05-12 13:40 | Outpatient (CLI) | payer MEDICARE, BC ==
--- NOTE | 2025-05-12 14:47 | RADIOLOGY REPORT ---
EXAM: CT CT HEAD, CATH CARDIAC INTERVENTION, CATH HEART CATH W/WO STENT INDICATION: OTH SYMPTOMS AND SIGNS W COGNITIVE FUNCTIONS AND AWARENESS TECHNIQUE: CT of the head without intravenous contrast. Radiation Dose Information: CT Dose: CTDI volume is 25 mGy. Dose-length product is 250 mGy*cm The dose indicators for CT are the volume Computed Tomography (CT) Dose Index (CTDIvol) and the Dose Length Product (DLP), and are measured in units of mGy and mGy-cm, respectively. These indicators are not patient dose, but values generated from the CT scanner acquisition factors. The report includes radiation exposure data for exposures received during this examination. COMPARISON: None FINDINGS: There is no evidence of acute intracranial hemorrhage, extra-axial collection, mass effect, midline shift, herniation or hydrocephalus. The ventricles, sulci and cisterns are age appropriate. The guo-white differentiation is intact. Patchy periventricular and subcortical white matter hypoattenuation is nonspecific but may be related to small vessel ischemic disease. The visualized paranasal sinuses and mastoid air cells are clear. The surrounding soft tissues and osseous structures are unremarkable. IMPRESSION: No acute intracranial abnormality.
== END 2025-05-12 23:59 | disposition home or self-care (01) ==
LOC: RAD 13:40
PROVIDERS: ATTEND Student in an Organized Health Care Education/Training Program
DX: R41.89 Other symptoms and signs involving cognitive functions and awareness (principal)
CPT/HCPCS: 70450

== ENCOUNTER 2025-06-19 21:45 | Emergency (ER) | payer MEDICARE, BC ==
[~2025-06-19] VITALS: Ht 157.5 cm; Wt 75.0 kg
[2025-06-19 22:09] VITALS: BP 123/72; PULSE 78; RESP 15; O2SAT 95
--- NOTE | 2025-06-19 22:17 | Physician Documentation ---
History of Present Illness ~ Chief Complaint: Allergic Reaction Stated Complaint: ALLERGIC REACTION Time Seen by MD: 22:12 Primary Medical Doctor: yazan PATRICK This is a 70-year-old female with a known history of allergy to penicillins, presents for evaluation of potential allergic reaction after taking Bactrim. The proximally 30 minutes prior to arrival she has been taking Bactrim and subsequently developed whole body pruritus, erythema, wheals, denies any difficulty breathing, wheezing, lightheadedness, syncope or near-syncope, denies any nausea, vomiting, diarrhea, abdominal pain. Denies chest pain. Similar to prior allergy. Did not attempt to treat it. EMS provided oxygen for comfortable she was never hypoxic. Denies any concerns for tobacco, alcohol or illicit substances use Medication Reconciliation Allergies: Coded Allergies: Penicillins (Verified Allergy, Unknown, 06/19/25) Sulfa (Sulfonamide Antibiotics) (Verified Allergy, Unknown, 06/19/25) Scheduled Atorvastatin Calcium (Atorvastatin Calcium), 40 MG PO DAILY Fluticasone/Umeclidin/Vilanter (Trelegy Ellipta 100-62.5-25), 1 PUFFS INH DAILY Gabapentin (Neurontin), 1 CAP PO HS, (Reported) Insulin Glargine,Hum.rec.anlog (Insulin Glargine Solostar), 19 UNIT HS, (Reported) Metformin Hcl* (Metformin ER*), 1 TAB PO TID, (Reported) Metoprolol Tartrate (Metoprolol Tartrate), 1 TAB PO BID, (Reported) Olmesartan Medoxomil (Olmesartan Medoxomil), 1 TAB PO DAILY, (Reported) Scheduled PRN Albuterol Sulfate (Ventolin Hfa), 2 PUFFS INH Q4H PRN for SOB or wheezing Hydrocodone Bit/Acetaminophen (Hydrocodon-Acetaminoph 7.5-325), 1 TAB PO QID PRN for pain, (Reported) Hydroxyzine Hcl* (Atarax*), 1 TAB PO DAILY PRN for anxiety, (Reported) Nitroglycerin SL* (Nitrostat SL*), 1 TAB SL Q5MIN PRN for Chest pain Q5min PRNx3-call MD, (Reported) Durable Medical Equipment [place], Insulin Disposable (Bd Ultra-Fine Pen Needle), SYR SUBCUT DAILY, (DME) Past Medical History Past Medical History: Coronary Artery Disease, High Cholesterol, Hypertension, Myocardial Infarction, Diabetes Past Surgical History: angioplasty, , hysterectomy Patient History: FH: cancer (Lung) FATHER Alcohol Use: None Drug Use: none Lives with: Alone Lives In: Home Review of Systems ROS 10 point review of systems was performed and unless noted above in HPI is negative for acute process/complaint. Physical Exam Vital Signs: Heart Rate: 78, Respiratory Rate: 15, BP: 123/72, Pulse Oximetry: 95, Weight: 75.000 Physical Exam GENERAL: Awake, alert, oriented, GCS 15, no apparent distress, non-toxic appearing, answers questions, follows commands appropriately. [place] HEENT: Atraumatic, normocephalic, pupils equal, extraocular muscles intact, sclerae anicteric, mucus membranes moist, oropharynx is clear, no stridor. NECK: supple, full active range of motion, trachea midline, no thyromegaly, no lymphadenopathy, no JVD. CARDIOVASCULAR: regular rate/rhythm, no murmurs/gallops/rubs, Pulses are 2+ in all extremities and symmetric. Capillary refill less than 2 seconds. PULMONARY: Nonlabored, good air movement ,no respiratory distress, speaking in full sentences, clear to auscultation bilaterally, no wheezing, no ronchi, no rales, no accessory muscle use. GASTROINTESTINAL: Soft, non-tender, non-distended, normal active bowel sounds, no organomegaly, no pulsatile masses, no CVA tenderness. NEUROLOGIC: Lucid with normal mental status. Normal facial symmetry. Moves all extremities symmetrically and with purpose. No truncal ataxia. Speech is fluid without evidence of dysarthria or aphasia, no focal deficits appreciated. MUSCULOSKELETAL: There is full range of motion of all extremities. There is no joint pain or joint swelling or joint erythema. There is no muscle pain or tenderness or swelling. EXTREMITIES: warm, well-perfused, no cyanosis, no clubbing, no edema, no acute deformities. Skin: warm, dry, no rashes or lesions, no jaundice, no petechiae orpurpura. No ecchymosis. PSYCHIATRIC: Normal affect, normal insight, normal concentration. Focused exam: [] Progress Results/Orders Results/Orders Completed Orders - MAYITO LEW DO Diphenhydramine Capsule (Benadryl Capsul (06/19/25 22:15) Dexamethasone Tablet (Decadron Tablet) (06/19/25 22:15) Famotidine Tablet (Pepcid Tablet) (06/19/25 22:15) Medications Received in ER Medications (Trade) Dose Ordered Sig/Ruthie Route PRN Reason Start Time Stop Time Status Last Admin Dose Admin (Benadryl capsule) 50 mg ONCE ONCE PO 06/19/25 22:15 06/19/25 22:16 DC 06/19/25 22:40 50 MG (Decadron tablet) 10 mg ONCE ONCE PO 06/19/25 22:15 06/19/25 22:16 DC 06/19/25 22:44 10 MG (Pepcid tablet) 20 mg ONCE ONCE PO 06/19/25 22:15 06/19/25 22:16 DC 06/19/25 22:41 20 MG Vital Signs 06/19/25 22:09 Pulse 78 Resp 15 B/P (MAP) 123/72 Pulse Ox 95 Medical Decision Making Additional information obtaine: other (EMS) Findings Facility Status: ED Holds, RME process The plan was discussed with the patient, who demonstrates clear understanding of the plan and is in agreement with the plan unless otherwise noted in the chart. All questions have been answered, all concerns were addressed unless otherwise documented. I was available throughout their ED stay for frequent reassessment and questions. Differential Diagnoses (considered and possible or likely): [Allergic reaction, anaphylaxis, anaphylactic shock is unlikely. Angioedema has been considerably clinically there is no evidence of such.] ??Differential Diagnoses (considered and unlikely, not requiring evaluation currently): [See above] MDM Data Please see [facility] for the following: Independent Historians and external Records Review. Historian: [Patient] Independent Historians: ?[EMS] Medication Management: [Reviewed medication list] Social History and determinants: [Reviewed] Please see the body of the note for the following: Any independent interpretations of ECG, imaging studies. All vitals signs/haemodynamics, ordered tests were independently reviewed and interpreted by myself. Nursing triage complaint and vitals reviewed, additional nursing notes were reviewed as available and I agree unless otherwise noted or documented in contradiction in the chart Vital Signs: Independently reviewed Labs: Independently interpreted Imaging: Independently interpreted Old Medical Records: Independently reviewed, see [facility] for relevant summary and information Pulse Oximetry: [95%] interpreted as [normal on room air] by me [Shearing Shed Worker: [Regular Rate, Regular rhythm, no ectopy, NSR] reviewed and interpreted by me] Additionally notably showing: [Hemodynamically stable] Tests considered but not ordered include: [Hematologic workup and imaging has been considered but does not appear to be necessary given clinical nature of diagnosis] Social Determinants of Health Impact: Patient was evaluated in [facility], [facility] [place] to healthcare due to below par ratio of patient to medical providers. [] Comorbid Conditions Impacting Present Evaluation and Care/Treatment: [History of allergy to penicillins] Management Discussions with other Healthcare Providers: [None] Treatment and Disposition Medication Management (Given or considered): [Benadryl/dexamethasone/Pepcid]. See EMR for details Consideration for Hospitalization/Escalation/Deescalation of Care: Admission for observation has been considered, [however the patient is able to tolerate p.o., their symptoms are controlled, they are able to rely on oral medications, and their chief complaint/diagnosis can be managed on outpatient basis.] ?ED Course:?[Date: Jun 20, 2025 Time: 00:07 Gradually improved. Feels great. No deterioration, no evidence of anaphylaxis or anaphylactic shock. Desires to go home] ?Shared decision making:?[Patient is hemodynamically stable for discharge home with follow with their primary care provider. [ ] Specific and cautious return precautions provided and discussed with full understanding. Any incidental findings were also discussed and follow up recommendations given. [] All questions answered. Patient/family were able to verbalize back return precautions. Patient/family agree to plan. Copies of imaging and laboratory studies were provided.] Code status:?FULL Please see the full Electronic Medical Record for full details of nursing do cumentation, medications list, other records of complete past medical history and conditions, vital signs, laboratory studies, and any radiologic study interpretations by radiologists. Portions of this note were completed using [employer] dictation software and as a result there may exist minor errors in spelling. I have reviewed elements of past family and social history and agree as included in note. Differential Dx:Considerations: Include: Anaphylaxis, Angioedema, Bronchospasm, Drug reaction, Respiratory failure, Shock, Urticaria; Unlikely: Hypotension, Latex allergy, Renal failure Departure Disposition: HOME / SELF CARE / HOMELESS Impression: Primary Impression: Acute allergic reaction Condition: Improved Discharge Instructions: Allergies, Adult Referrals: NO PRIMARY CARE PROVIDER (PCP) Prescriptions Cefpodoxime Proxetil (Vantin) 200 Mg Tablet 1 TAB PO Q12H for 7 Days, #14 TAB Prov: MAYITO LEW DO 06/20/25 Education Educated: Patient Educated regarding: diagnosis, treatment, prognosis, need for follow up Signature Scribe Signature: no scribe Attestation: The note accurately reflects work and decisions made by me.Mayito Lew DO 06/19/25 22:17 MAYITO LEW DO Jun 19, 2025 22:17
[2025-06-20] MEDS ORDERED: CEFP200T13 PO (00:06)
== END 2025-06-20 00:15 | disposition home or self-care (01) ==
LOC: ER 21:46
DX: T78.49XA Other allergy, initial encounter (principal); I10 Essential (primary) hypertension; I25.10 Atherosclerotic heart disease of native coronary artery without angina pectoris; E78.00 Pure hypercholesterolemia, unspecified; E11.9 Type 2 diabetes mellitus without complications; I25.2 Old myocardial infarction; Z88.0 Allergy status to penicillin; Z88.2 Allergy status to sulfonamides; Z90.710 Acquired absence of both cervix and uterus; Z79.4 Long term (current) use of insulin; Z79.899 Other long term (current) drug therapy; Z98.890 Other specified postprocedural states; Z60.2 Problems related to living alone; X58.XXXA Exposure to other specified factors, initial encounter
CPT/HCPCS: 99284; Q0163